=== PATIENT | female | born 1935 | race Caucasian/White ===

== ENCOUNTER 2019-12-05 13:32 | Outpatient (CLI) | payer MEDICARE, SELFPAY ==
--- NOTE | 2019-12-05 13:45 | CTR_ITS ---
PROCEDURE INFORMATION: Exam: CT Angiography Chest With Contrast Exam date and time: 12/05/2019 1:52 PM Age: 84 years old Clinical indication: Condition or disease; Other: F/u thoracic aneurysm; Prior surgery; Surgery type: Pacemaker; Additional info: Thoracic aortic aneurysm TECHNIQUE: Imaging protocol: Computed tomographic angiography of the chest with intravenous contrast. 3D rendering: MIP and/or 3D reconstructed images were created by the technologist. Total DLP: 675.19 mGy-cm Radiation optimization: All CT scans at this facility use at least one of these dose optimization techniques: automated exposure control; mA and/or kV adjustment per patient size (includes targeted exams where dose is matched to clinical indication); or iterative reconstruction. Contrast material: OMNI 350; Contrast volume: 95 ml; Contrast route: IV; COMPARISON: CT chest wo con [id number] 03/17/2016 2:04 PM FINDINGS: Pulmonary arteries: Normal. No pulmonary emboli. Aorta: Aneurysmal dilatation of the ascending aorta measuring 5.2 cm. No dissection. Other veins: The left brachiocephalic vein appears narrowed or possibly occluded with paraspinous collaterals. Lungs: 4 mm nodule in the right upper lobe, image 20. Pleural space: Unremarkable. No pneumothorax. No pleural effusion. Heart: Unremarkable. No cardiomegaly. No pericardial effusion. Gallbladder and bile ducts: Cholecystectomy. Lymph nodes: Unremarkable. No enlarged lymph nodes. Bones/joints: Unremarkable. No acute fracture. Soft tissues: Unremarkable. Other findings: Left pacemaker. CT/CT angio chest [id number] IMPRESSION: 1. Slightly progressed aneurysmal dilatation of the ascending thoracic aorta measuring 5.2 cm, previously 4.6 cm. 2. 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 3. 4 mm right lung nodule. For patients at low risk (minimal or absent history of smoking and of other known risk factors), no routine follow-up is indicated. For patients at high risk (history of smoking or of other known risk factors), consider optional CT at 12 months. (lorelei Yu al., Fleischner Society, 2017). Radiation Dose CTDIVOL = (mGy): DLP = 675.19 (mGy-cm)
--- NOTE | 2019-12-05 13:45 | USCV_ITS ---
Regina Johnson Age: 84 Gender: F : 1935 Exam Date: 12/05/2019 14:57 Ordering Phys: Chavez Garland MD Technologist: Jeanie Lau Exam Location: [facility] [place] Indication: MODERATE AORTIC REGURGITATION BP: / HR: 85 Rhythm: Other Technical Quality: Adequate MEASUREMENTS (Male / Female) Normal Values 2D ECHO LV Diastolic Diameter PLAX 3.8 cm 4.2 - 5.9 / 3.9 - 5.3 cm LV Systolic Diameter PLAX 2.0 cm IVS Diastolic Thickness 1.2 cm 0.6 - 1.0 / 0.6 - 0.9 cm IVS Systolic Thickness 1.5 cm LVPW Diastolic Thickness 0.9 cm 0.6 - 1.0 / 0.6 - 0.9 cm LVPW Systolic Thickness 1.5 cm LVOT Diameter 2.0 cm LV Ejection Fraction 2D Teich 79.1 % LV Ejection Fraction MOD 2C 65.9 % LV Ejection Fraction 2C AL 66.4 % LA Diameter 2.4 cm LA Width 2.6 cm LA Height 4.2 cm RA Width 3.5 cm RA Height 4.4 cm M-MODE LV Diastolic Diameter MM 4.4 cm 4.2 - 5.9 / 3.9 - 5.3 cm LV Systolic Diameter MM 2.7 cm LV Ejection Fraction MM Teich 70.7 % IVS Diastolic Thickness MM 1.0 cm 0.6 - 1.0 / 0.6 - 0.9 cm IVS Systolic Thickness MM 1.2 cm LVPW Diastolic Thickness MM 0.7 cm 0.6 - 1.0 / 0.6 - 0.9 cm LVPW Systolic Thickness MM 1.3 cm Aortic Annulus Diameter 2.4 cm LA Ao Ratio MM 1.0 MV E Point Septal Separation 0.4 cm DOPPLER AV Peak Velocity 183.0 cm/s LVOT Peak Velocity 149.0 cm/s AV Area Cont Eq vti 2.8 cm squared AV Area Cont Eq pk 2.6 cm squared MV Peak Velocity 103.0 cm/s MV Area PHT 3.1 cm squared Mitral E to A Ratio 0.6 MV E' Velocity 5.0 cm/s Mitral E to MV E' Ratio 13.1 Mitral E to LV E' Lateral Ratio 14.8 Mitral E to LV E' Septal Ratio 11.9 TR Peak Velocity 221.0 cm/s TR Peak Gradient 19.5 mmHg Right Atrial Pressure 3.0 mmHg Pulmonary Artery Systolic Pressu 22.5 mmHg PV Peak Velocity 117.0 cm/s RV Acceleration Time 0.1 s FINDINGS Left Ventricle Normal left ventricular size, systolic function and wall thickness, with no regional wall motion abnormalities. Grade I/IV diastolic dysfunction (abnormal relaxation filling pattern), normal to mildly elevated filling pressures. Left ventricular ejection fraction is estimated at 60%. Abnormal septal motion consistent with pacemaker. Right Ventricle Normal right ventricular size and systolic function. Normal right ventricular systolic pressure. Catheter/pacemaker wire visualized in the right ventricle. Right Atrium The right atrium is normal in size. Left Atrium The left atrium is normal in size. Mitral Valve Structurally normal mitral valve. Mild mitral annular calcification. Mild mitral valve regurgitation. Aortic Valve Structurally normal trileaflet aortic valve. Mild aortic valve calcification. Aortic valve sclerosis without stenosis. Moderate aortic valve regurgitation. Tricuspid Valve Structurally normal tricuspid valve. Trace tricuspid valve regurgitation. Pulmonic Valve Pulmonic valve not well visualized. Pericardium Normal pericardium without effusion. Aorta Normal ascending aorta dimension. CONCLUSIONS Normal left ventricular size, systolic function and wall thickness, with no regional wall motion abnormalities. Grade I/IV diastolic dysfunction (abnormal relaxation filling pattern), normal to mildly elevated filling pressures. Left ventricular ejection fraction is estimated at 60%. Structurally normal mitral valve. Mild mitral annular calcification. Mild mitral valve regurgitation. Structurally normal trileaflet aortic valve. Mild aortic valve calcification. Aortic valve sclerosis without stenosis. Moderate aortic valve regurgitation. No change from previous study of May 04, 2018 Dr. Satya Ramires MD (Electronically Signed) Final Date: 06 December 2019 15:55 S
[2019-12-05 15:54] LABS: Blood Urea Nitrogen 18 mg/dL (8-23)
[2019-12-05] MEDS: iohexol 350 mg/mL 100 mL Btl IV (16:38)
== END 2019-12-05 13:33 | disposition home or self-care (01) ==
PROVIDERS: Family Provider Family Medicine; PCP Family Medicine; Visit Provider Family Medicine
DX: I71.2 Thoracic aortic aneurysm, without rupture (principal); I35.1 Nonrheumatic aortic (valve) insufficiency; I08.3 Combined rheumatic disorders of mitral, aortic and tricuspid valves; I82.290 Acute embolism and thrombosis of other thoracic veins; R91.1 Solitary pulmonary nodule; Z95.0 Presence of cardiac pacemaker
CPT/HCPCS: 36415; 71275; 82565; 84520; 93306

== ENCOUNTER → 2020-03-16 14:50 | Outpatient (BNVA) | payer MEDICARE, SELFPAY | PROVIDERS: Family Provider Family Medicine; PCP Family Medicine; Visit Provider Nurse Practitioner Family | DX: R30.0 Dysuria (principal); N30.00 Acute cystitis without hematuria | CPT/HCPCS: 80053; 81000 ==

== ENCOUNTER 2020-03-31 15:28 | Outpatient (CLI) | payer MEDICARE, SELFPAY ==
--- NOTE | 2020-03-31 15:30 | FLR_ITS ---
PROCEDURE INFORMATION: Exam: XR Abdomen, 1 View Exam date and time: 03/31/2020 3:33 PM Age: 85 years old Clinical indication: Condition or disease; Other: Stent; Prior surgery TECHNIQUE: Imaging protocol: XR of the abdomen. Views: Frontal supine view of the abdomen. 1 View. COMPARISON: No relevant prior studies available. FINDINGS: Gastrointestinal tract: Normal. No bowel dilation. Status post cholecystectomy Bones/joints: Metallic left hip arthroplasty in good position otherwise unremarkable. Soft tissues: There is a double-J ureteral stent on the right side in good position. XR/XR KUB [id number] IMPRESSION: 1. No acute GI abnormality. 2. Double-J ureteral stent right side. 3. Metallic arthroplasty left hip 4. Status post cholecystectomy
== END 2020-03-31 15:29 | disposition home or self-care (01) ==
LOC: RAD 15:32
PROVIDERS: PCP Family Medicine; Visit Provider Urology
DX: Z96.0 Presence of urogenital implants (principal); Z96.642 Presence of left artificial hip joint; Z90.49 Acquired absence of other specified parts of digestive tract
CPT/HCPCS: 74018; 81001

== ENCOUNTER 2020-04-06 12:34 | Day surgery (SDC) | payer MEDICARE, SELFPAY ==
--- NOTE | 2020-04-03 09:57 | ECG_ITS ---
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 Measurements Intervals [place] Rate: 60 P: 111 DE: 178 QRS: -69 QRSD: 186 T: 112 QT: 455 QTc: 456 Interpretive Statements ELECTRONIC ATRIAL PACEMAKER ELECTRONIC VENTRICULAR PACEMAKER ABNORMAL RHYTHM ECG Compared to ECG 04/05/2019 09:58:18 No significant changes Electronically Signed On 04-03-2020 21:52:26 CDT by Omer Kim M.D. [id number]"
[2020-04-03 09:59] VITALS: BMI 25.2
--- NOTE | 2020-04-03 10:15 | ANES.PREANE2 ---
Pre-Anesthetic Assessment Pre-Anesthetic Assessment: Height/Weight: Height 1.57 m Weight 62.596 kg Preop Diagnosis: Chronic right ureteral stent Proposed Procedure: Operation Date: 04/06/20 13:55 Proposed Procedures p Cystoscopy 67048 84386 Z96.0(Not Applicable) - Chevy Alcocer MD s Ureteral Stent Exchange(Right) - Chevy Alcocer MD s ESWL/possible(Not Applicable) - Chevy Alcocer MD Familial anesthetic complications: none Social: Social History: No alcohol and No tobacco Exam: Pre-Anes Outpt Exam: alert, oriented x 3, clear to auscultation bilaterally and regular rate & rhythm Airway: Cervical ROM: WNL MP: 3 Dentition: False Pulmonary: Pulmonary: None reported CV/HEM: CV/HEM: HTN Comments: 5.2 cm Thoracic ascending aortic aneursym 12/06 echo normal LV, moderate AI, no significant stenosis Pacemaker - type II mobtiz AV block LBBB Metabolic: Metabolic: Hyperlipidemia Musc/skel: Musc/skel: Lower Back Pain Anesthetic Plan: ASA status: 3 Anesthesia: General Risk of > 500 ml blood loss (7ml/kg in children): No PFSH Anesthesia PFSH: Medical History Aortic insufficiency Aortic valve sclerosis Ascending aortic aneurysm HTN (hypertension) Hyperlipidemia Left bundle branch block Second degree AV block, Mobitz type II Ureteral stent retained Surgical History S/P cholecystectomy S/P hip replacement Status cardiac pacemaker Status post tubal ligation Family History Daughter Cancer BREAST Son Cancer KIDNEY Social History Smoking and tobacco status: never smoked Alcohol intake: never Current occupational status: retired Data Anesthesia Cardiac Studies: No Data to Display
[2020-04-06 12:56] VITALS: BP 184/106; PULSE 81; RESP 16; TEMP 36.5; O2SAT 96
[2020-04-06] MEDS: sodium chloride 0.9% 1,000 ML 30 ML IV (13:13)
--- NOTE | 2020-04-06 13:33 | P.ANESUD_ITS ---
Pre-Anesthetic Update Pre-Anesthetic Assessment: Date of Surgery/Procedure: 04/06/20 Preop Alba gnosis: Chronic right ureteral stent Proposed Procedure: Operation Date: 04/06/20 13:15 Proposed Procedures p Cystoscopy 51698 21140 Z96.0(Not Applicable) - Chevy Alcocer MD s Ureteral Stent Exchange(Right) - Chevy Alcocer MD s ESWL/possible(Not Applicable) - Chevy Alcocer MD Operation Date: 04/06/20 13:15 Proposed Procedures p Cystoscopy 89446 85109 Z96.0(Not Applicable) - Chevy Alcocer MD s Ureteral Stent Exchange(Right) - Chevy Alcocer MD s ESWL/ possible(Not Applicable) - Chevy Alcocer MD Any changes to Pre-Anesthetic Assessment?: No Last Intake: Intake Last Liquid Date 04/06/20 Last Liquid Time 07:00 Last Solid Date 04/04/20 Last Solid Time 17:00 Vitals: Temperature 97.7 F 04/06/20 12:56 Temperature Source Temporal Artery S can 04/06/20 12:56 Pulse Rate 81 04/06/20 12:56 Respiratory Rate 16 04/06/20 12:56 Blood Pressure 184/106 04/06/20 12:56 Blood Pressure Stephenie n 132 04/06/20 12:56 Pulse Oximetry 96 04/06/20 12:56 Oxygen Delivery Me thod 04/06/20 12:56 Exam: Pre-Anes Outpt Exam: alert, oriented x 3, clear to auscultation bilaterally and regular rate & rhythm Other Pertinent Information: Other Pertinent Information: took carvedilol Cardiac Studies: No Data to Display
--- NOTE | 2020-04-06 14:10 | PM.OP ---
Operative Report Date of procedure: April 06, 2020 Pre-op Diagnosis: Chronic right ureteral stent Post-op diagnosis: same Procedure Done: 1. Cystoscopy with removal of right ureteral stent Implants: None Pathology: none sent Surgeon: Leodan Anesthesia: MAC Estimated blood loss: Minimal Urine output: Not measured Complications: None Findings: Minimal encrustation on the distal end of the stent with no encrustation of any consequence on the proximal end. Stent easily uncurled and withdrew without any significant tension. Condition: stable Brief History: Mrs. Johnson is a very pleasant 85-year-old white female with a history of chronic right ureteral/renal dilation of unclear etiology dating back many years with more recent development of chronic abdominal pain. She underwent stent placement last year with my expectation that she would not likely see any significant benefit from a pain perspective due to the chronic nature and longstanding dilation. Surprisingly she did improve. Since then she is also had a right abdominal wall hernia repair by Dr. Figueroa and has done well from that perspective with a significant improvement in her baseline abdominal pain. We had discussed the possibility of changing the stent on a routine basis versus removing it at some point to see if it really is necessary and ultimately she and her family after detailed discussion elected to have the stent removed and she is admitted now to outpatient surgery for that procedure. Procedure: After routine preoperative evaluation examination and obtaining of informed consent she was taken to the operating suite on 04/06/2020 where general anesthesia was administered without difficulty after appropriate timeout was performed, SCDs confirmed to be functioning, preoperative antibiotics administered, and beta-sherry protocol was confirmed. Prepped and draped in usual sterile fashion in dorsolithotomy position pain careful attention to avoiding pressure points. 21 Vietnamese cystoscope with 30 degree lens was introduced into urethral meatus and advanced into the bladder under videoscopy. A flexible guidewire was passed up the right ureter next to the stent in the appropriate position. The distal aspect of the stent was grasped with grasping forceps and withdrawn through the urethral meatus then with light pressure of the stent under fluoroscopic monitoring was withdrawn with easy uncurling of the proximal aspect. There was no tension at all. Reinspection showed good drainage without bleeding from the ureteral orifice. The safety wire was removed and the procedure completed after draining her bladder. She tolerated the procedure well without complications and was awakened in the operating room and returned to the recovery room in stable condition. PLANS: 1. Discharge from outpatient surgery 2. I reviewed with her family the possibility of increased pain like we had discussed preoperatively. I encouraged him to call if they felt that was becoming an issue. 3. Follow-up in 3 months or sooner for increasing symptoms
--- NOTE | 2020-04-06 14:15 | P.HPUD_ITS ---
Surgery/Procedure H&P Update DATE OF PROCEDURE: April 06, 2020 DATE H&P PERFORMED: 03/31/20 H&P UPDATE INFORMATION: I have reviewed H&P completed within last 30 days, No changes to prior documentation and H&P is in [facility] EMR on date indicated PREOP DIAGNOSIS: Chronic right ureteral stent PLANNED PROCEDURE: Operation Date: 04/06/20 13:15 Proposed Procedures p Cystoscopy 50815 30516 Z96.0(Not Applicable) - Chevy Alcocer MD s Ureteral Stent Exchange(Right) - Chevy Alcocer MD s ESWL/possible(Not Applicable) - Chevy Alcocer MD Operation Date: 04/06/20 13:15 Proposed Procedures p Cystoscopy 56902 69725 Z96.0(Not Applicable) - Chevy Alcocer MD s Ureteral Stent Exchange(Right) - Chevy Alcocer MD s ESWL/ possible(Not Applicable) - Chevy Alcocer MD
[2020-04-06 14:24] VITALS: BP 131/71; PULSE 69; RESP 16; TEMP 36.3; O2SAT 95
[2020-04-06 14:55] VITALS: BP 160/77; PULSE 60; RESP 18; O2SAT 96
== END 2020-04-06 15:00 | disposition home or self-care (01) ==
PROVIDERS: PCP Family Medicine; Visit Provider Urology
PROC: 0TJB8ZZ Inspection of Bladder, Via Natural or Artificial Opening Endoscopic (ICD-10-PCS; CPT 52000; principal; 2020-04-06 13:15)
PROC: (CPT 52310; 2020-04-06 13:15)
DX: Z96.0 Presence of urogenital implants (principal); I10 Essential (primary) hypertension; E78.5 Hyperlipidemia, unspecified
CPT/HCPCS: 52310; 12345; 93005; J0690; J2001; J2704; J3010; J7030

== ENCOUNTER → 2020-07-08 13:13 | Outpatient (BNVA) | payer MEDICARE, SELFPAY | PROVIDERS: PCP Family Medicine; Visit Provider Urology | DX: N30.00 Acute cystitis without hematuria (principal); Z96.0 Presence of urogenital implants | CPT/HCPCS: 81001 ==

== ENCOUNTER 2020-12-25 07:52 | Outpatient (CLI) | payer MEDICARE, SELFPAY ==
--- NOTE | 2020-12-25 08:23 | CT_ITS ---
WS: [id number] CT of the lumbar spine, additional two-dimensional coronal and sagittal imaging was obtained. 12/26/19 21 Clinical Data: BACK PAIN Comparison: CT abdomen and pelvis, 08/20/2019, MRI of the lumbar spine, 04/20/2009. DLP: 1721.[address] scans at [facility] use at least one of these dose optimization techniques: automat ed exposure control; mA and/or kV adjustment per patient size (includes targeted exams where dose is matched to clinical indication); or iterative reconstruction. Findings: There are compression fractures of the superior aspect of L1 and also of L5 which were not seen on the most recent CT abdomen and pelvis. The posterior superior aspect of L1 has a retropulsion of 0.5 cm. There is central vertebral body height of L2 and L3 which has not changed since 08/10/2019 . Degenerative disc disease is present. T12-L1, L4-L5 and L5-S1. There is subluxation of L2 on L3, L3 on L4 and L4 on L5 of 0.3 cm. Diffuse osteoporosis is present. The transverse processes and SI joint s are normal. There is a left renal cyst. There are clips in the right upper quadrant from a cholecys tectomy. T12-L1: There is central canal stenosis from the retropulsed fragment of L1 but no foraminal stenosis . L1-L2: There is mild canal stenosis from the slight retropulsion of the L2 vertebral body. L2-L3: There is canal stenosis from the retropulsion of the L3 vertebral body along with facet joint arthritis causing canal and foraminal stenosis. L3-L4: There is canal stenosis from retropulsion of the L4 vertebral body along with facet joint arth ritis causing canal and foraminal stenosis L4-L5: There is canal stenosis from retropulsion of the L5 vertebral body along with facet joint arth ritis causing canal and foraminal stenosis. L5-S1: There is a broad-based disc bulge and facet joint arthritis causing canal and foraminal stenos is. CT/CT lumbar spine wo con* [id number] Impression: 1. Recent compression fractures of the L1 and L5 vertebral bodies with loss of less than 25% of vertebral body height. 2. Old compression fractures of L2 and L3 with loss of less than 25% of central vertebral body height. 3. Degenerative disc disease at multiple levels. 4. Diffuse osteoporosis 5. Multilevel minimal subluxation. 6. Multilevel disc bulging, retropulsion, and facet joint arthritis causing can al and foraminal stenosis.
== END 2020-12-25 07:53 | disposition home or self-care (01) ==
LOC: RADWPI 08:01
PROVIDERS: PCP Family Medicine; Visit Provider Family Medicine
DX: M51.26 Other intervertebral disc displacement, lumbar region (principal); M13.88 Other specified arthritis, other site; M48.061 Spinal stenosis, lumbar region without neurogenic claudication; M81.0 Age-related osteoporosis without current pathological fracture; M51.36 Other intervertebral disc degeneration, lumbar region; S32.020A Wedge compression fracture of second lumbar vertebra, initial encounter for closed fracture; S32.030A Wedge compression fracture of third lumbar vertebra, initial encounter for closed fracture; X58.XXXA Exposure to other specified factors, initial encounter
CPT/HCPCS: 72131

== ENCOUNTER → 2021-01-12 15:06 | Outpatient (BNVA) | payer MEDICARE, SELFPAY | PROVIDERS: PCP Family Medicine; Referring Provider Family Medicine; Visit Provider Orthopaedic Surgery | DX: M48.56XA Collapsed vertebra, not elsewhere classified, lumbar region, initial encounter for fracture (principal); M54.9 Dorsalgia, unspecified | CPT/HCPCS: 72110 ==

== ENCOUNTER 2021-02-03 08:33 | Outpatient (CLI) | payer MEDICARE, SELFPAY ==
--- NOTE | 2021-02-03 09:00 | IR_ITS ---
WS: [id number] MYELOGRAM LUMBAR SPINE Fluoroscopic guided lumbar myelogram CLINICAL INFORMATION: M54.9 - Dorsalgia, unspecified COMPARISON: None. TECHNIQUE: The procedure, including risks, benefits, and complications, were discussed with the patie nt who agreed to proceed. A timeout was performed to confirm correct patient, procedure, and site. Using sterile technique, the patient was prepped and draped in the usual sterile fashion. After admin istration of local anesthesia using 1% preservative-free lidocaine and using fluoroscopic guidance, a 22-gauge spinal needle was advanced into the subarachnoid space at the L5-S1 level. Subsequently 13 cc of Omnipaque 240 was administered into the thecal sac. The needle was removed and hemostasis was a chieved. Spot fluoroscopic images were obtained. FLUOROSCOPIC TIME: 0.5 minutes. Spot fluoroscopic images demonstrate mild lumbar curve convex right. Osteopenia. Single lead cardiac pacer. Cholecystectomy clips. Left MARK. Aortic calcification. Mild compression of the L1 and L5 super ior endplates as seen on the recent CT. Chronic compression of the L2 and L3 superior endplates. Mult ilevel central canal stenosis. Slight anterolisthesis L4 on L5 in the neutral position measuring 5 mm . This increases in flexion to 8.6 mm and decreases slightly on extension. Please see CT myelogram report for additional detail. IR/[place] myel[place] lumbar [id number] IMPRESSION: 1. Uncomplicated lumbar myelogram. 2. Multilevel moderate central canal stenosis. See CT report for better anatom ic detail 3. Mild flexion instability L4-5 described above.
[2021-02-03] MEDS: iohexol 240 mg/mL 50 mL Btl INTRATHECA (09:53)
--- NOTE | 2021-02-03 11:30 | CT_ITS ---
WS: [id number] CT LUMBAR SPINE TECHNIQUE: Contrast-enhanced CT of the lumbar spine with coronal and sagittal reformatted images. CLINICAL INFORMATION: M54.9 - Dorsalgia, unspecified COMPARISON: CT December 25, 2020 DLP: 1820.[address] scans at [facility] use at least one of these dose optimization techniques: automat ed exposure control; mA and/or kV adjustment per patient size (includes targeted exams where dose is matched to clinical indication); or iterative reconstruction. FINDINGS: Mild lumbar curve. Mild recent compression fractures superior endplates at L1 and L5 with moderate re tropulsion of the posterior superior cortex unchanged from the recent examination. Chronic compressio n of the L2 and L3 superior endplates. T12-L1: Vacuum disc phenomenon. Mild central canal stenosis. Tiny central protrusion. Mild bilateral foraminal narrowing. Mild facet arthropathy. L1-L2: Mild disc bulging with osteophytic ridging. Mild narrowing subarticular recess bilaterally. Mo derate facet arthropathy. Mild bilateral foraminal narrowing. L2-L3: Mild disc bulging and osteophytic ridging. Moderate central canal stenosis with impingement wells barticular recess bilaterally. Moderate facet arthropathy. Mild bilateral foraminal narrowing. L3-L4: Slight anterolisthesis L3 on L4. Moderate central canal stenosis due to disc bulging with face t arthropathy and ligamentum flavum hypertrophy. Impingement on the traversing right L4 nerve root. M ild bilateral foraminal narrowing. L4-L5: Mild disc bulging with vacuum disc phenomenon. Moderate central canal stenosis. Impingement tr aversing L5 nerve roots. Moderate left foraminal narrowing. Moderate facet arthropathy. L5-S1: Mild disc bulging with osteophytic ridging. Moderate to advanced facet arthropathy. Slight imp ingement traversing S1 nerve roots. Mild to moderate central canal stenosis. Moderate left greater th an right foraminal narrowing. Adrenal glands are normal. Partially visualized left renal cyst. Normal caliber abdominal aorta with aortic calcification. Calcified uterine fibroid. Osteopenia. Visualized pelvic bony structures: Normal. Paravertebral soft tissues: Normal. CT/CT lumbar spine w con [id number] IMPRESSION: 1. Recent compression of the L1 and L5 superior endplates is unchanged. 2. Moderate central canal stenosis L2-L3 L3-L4 and L4- L5 worse L4-5 with impi ngement on the subarticular recess bilaterally. 3. Multilevel bony foraminal narrowing [id number] worse at left L4-5 and bilateral L5-S1 worse in the left.
== END 2021-02-03 08:34 | disposition home or self-care (01) ==
PROVIDERS: PCP Family Medicine; Visit Provider Orthopaedic Surgery
DX: S32.010A Wedge compression fracture of first lumbar vertebra, initial encounter for closed fracture (principal); S32.050A Wedge compression fracture of fifth lumbar vertebra, initial encounter for closed fracture; M48.061 Spinal stenosis, lumbar region without neurogenic claudication; X58.XXXA Exposure to other specified factors, initial encounter
CPT/HCPCS: 62304; 72120; 72132; Q9966

== ENCOUNTER → 2021-02-25 09:58 | Outpatient (BNVA) | payer MEDICARE, SELFPAY | PROVIDERS: PCP Family Medicine; Visit Provider Orthopaedic Surgery | DX: Z01.818 Encounter for other preprocedural examination (principal); Z20.822 Contact with and (suspected) exposure to COVID-19 | CPT/HCPCS: 87635 ==

== ENCOUNTER 2021-03-01 07:35 | Day surgery (SDC) | payer MEDICARE, SELFPAY ==
[2021-02-26 11:12] VITALS: BMI 27.3
--- NOTE | 2021-02-26 11:39 | ECG_ITS ---
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
--- NOTE | 2021-02-26 12:52 | ANES.PREANE2 ---
Pre-Anesthetic Assessment Pre-Anesthetic Assessment: Height/Weight: Height 1.52 m Weight 63.503 kg Preop Diagnosis: Chronic right ureteral stent Proposed Procedure: Operation Date: 03/01/21 14:50 Proposed Procedures p Lumbar Spine Decompression L1 L5 07531 34403 S32.000(Not Applicable) - Oscar Watkins, DO Was Beta Peyton taken within 24 hours: Yes Was Clonidine taken within 24 hours: N/A Social: Social History: No alcohol and No tobacco Exam: Pre-Anes Outpt Exam: alert, oriented x 3, clear to auscultation bilaterally and regular rate & rhythm Airway: Submandibular: WNL Cervical ROM: WNL MP: 2 Dentition: False CV/HEM: CV/HEM: Arrythmia, CAD and HTN Comments: Normal EF 60%, AV sclerosis without stenosis, mild to mod AI, ascending aneurysm 5.2cm Pacemaker Metabolic: Metabolic: Hyperlipidemia Anesthetic Plan: ASA status: 3 Anesthesia: General Risk of > 500 ml blood loss (7ml/kg in children): No PFSH Anesthesia PFSH: Medical History Aortic insufficiency Aortic valve sclerosis Ascending aortic aneurysm HTN (hypertension) Hyperlipidemia Left bundle branch block Second degree AV block, Mobitz type II Ureteral stent retained Surgical History S/P cholecystectomy S/P hip replacement Status cardiac pacemaker Status post tubal ligation Family History Daughter Cancer BREAST Son Cancer KIDNEY Father , in his 80's No problems noted. Mother , in her 80's No problems noted. Social History Smoking and tobacco status: never smoked Alcohol intake: never Marital status: / Current occupational status: retired History of recent travel: No Data Anesthesia Cardiac Studies: No Data to Display
[2021-03-01] VITALS (8 sets, daily range): BP systolic 124–184; BP diastolic 79–122; PULSE 60–92; RESP 17–18; TEMP 36.2–36.5; O2SAT 94–100
--- NOTE | 2021-03-01 | SCC_ITS ---
Procedure Done: L1 kyphoplasty L5 Kyphoplasty 45.3 seconds of fluoroscopic guidance, for a cumulative dose of 38.62 mGy and 24.9 mGy was provided to Dr[address] Watkins by the radiology department. C-arm images of the lumbar spine were saved for the patient's permanent record. [facility]
--- NOTE | 2021-03-01 | SC_ITS ---
WS: [id number] Exam: C-arm FL for Kyphoplasty Date/Time of Exam: 03/01/2021 7:42 AM Reason For Exam: surgery Limited AP intraoperative C-arm images of the lumbar spine are submitted for evaluation. There are si gns of kyphoplasty involving L1 and L5 compression fractures.
--- NOTE | 2021-03-01 07:42 | SC_ITS ---
WS: [id number] Exam: C-arm FL for Kyphoplasty Date/Time of Exam: 03/01/2021 7:42 AM Reason For Exam: surgery Limited AP intraoperative C-arm images of the lumbar spine are submitted for evaluation. There are si gns of kyphoplasty involving L1 and L5 compression fractures.
--- NOTE | 2021-03-01 07:58 | W.PM.OPSUD ---
Surgery/Procedure H&P Update DATE OF PROCEDURE: March 01, 2021 DATE H&P PERFORMED: 02/25/21 H&P UPDATE INFORMATION: I have reviewed H&P completed within last 30 days, I have examined patient prior to procedure and No changes to prior documentation PREOP DIAGNOSIS: L1 and L5 compression fracture PLANNED PROCEDURE: Operation Date: 03/01/21 10:30 Proposed Procedures p Lumbar Spine Decompression L1 L5 91903 17181 S32.000(Not Applicable) - Oscar Watkins DO
[2021-03-01] MEDS: sodium chloride 0.9% 1,000 ML 30 ML IV (07:59)
[2021-03-01] MEDS: enoxaparin 40 mg/0.4 mL Syringe SUBCUT (08:01)
--- NOTE | 2021-03-01 08:08 | W.PM.OPSUD ---
Surgery/Procedure H&P Update DATE OF PROCEDURE: March 01, 2021 DATE H&P PERFORMED: 02/25/21 PREOP DIAGNOSIS: L1 and L5 compression fracture PLANNED PROCEDURE: L1 and L5 Kyphoplasty Operation Date: 03/01/21 10:30
--- NOTE | 2021-03-01 08:10 | P.ANESUD_ITS ---
Pre-Anesthetic Update Pre-Anesthetic Assessment: Date of Surgery/Procedure: 03/01/21 Preop Alba gnosis: L1 and L5 compression fracture Proposed Procedure: Operation Date: 03/01/21 10:30 Proposed Procedures p Lumbar Spine Decompression L1 L5 20156 49977 S32.000(Not Applicable) - Oscar Watkins, DO Any changes to Pre-Anesthetic Assessment?: No Last Intake: Intake Last Liquid Date 02/28/21 Last Liquid Time 06:00 Last Solid Date 02/28/21 Last Solid Time 16:00 Vitals: Temperature 97.4 F L 03/01/21 07:49 Temperature Source Oral 03/01/21 07:49 Pulse Rate 92 03/01/21 07:49 Pulse Rhythm 03/01/21 07:49 Pulse Strength 3+ Normal 03/01/21 07:49 Respiratory Rate 18 03/01/21 07:49 Blood Pressure 184/122 03/01/21 07:49 Blood Pressure Stephenie n 142 03/01/21 07:49 Pulse Oximetry 95 03/01/21 07:49 Oxygen Delivery Me thod 03/01/21 07:49 Exam: Pre-Anes Outpt Exam: alert, oriented x 3, clear to auscultation bilaterally and regular rate & rhythm Cardiac Studies: No Data to Display
--- NOTE | 2021-03-01 09:29 | P.PCN_ITS ---
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
--- NOTE | 2021-03-01 09:29 | PM.PACU ---
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
--- NOTE | 2021-03-01 09:33 | SUR.PHASEI ---
PT AWAKES TO VOICE, DENIES PAIN , PT CONTINUES TO SLEEP IF NOT DISTURBED PT ON RA TRIAL PER PT REQUEST , PT TAKING OCC ICE CHIPS VSS.
--- NOTE | 2021-03-01 09:34 | PM.OP ---
Operative Report Date of procedure: March 01, 2021 Pre-op Diagnosis: L1 and L5 compression fracture Post-op diagnosis: same Procedure Done: L1 kyphoplasty L5 Kyphoplasty Surgeon: Oscar Watkins Anesthesia: General Estimated blood loss (mL): 5 Condition: stable Disposition: PACU Procedure: 1. L1 Kyphoplasty 2. L5 Kyphoplasty Patient is brought to the operative suite after undergoing areas impingement were well-padded. Stab incision was made over the L5 pedicle using AP lateral fluoroscopy. Opening awl was inserted. Drill was then used. Balloon was then inserted. Inflated. Balloon was deflated. Cement was injected. Spine had good fill throughout the entire vertebral body. Attention was then brought to the L1 level. Stab incision made over the L1 pedicle. Opening trocar was used. Drill was then inserted. Balloon was then inserted. Balloon was deflated. Cement was injected had good fill throughout the vertebral body as well. Wounds were then irrigated closed with a nylon stitch. And patient had sterile dressings applied and transferred to the PACU in stable condition.
[2021-03-01] MEDS: HYDROcodone-acetaminophen 5-325 mg Tablet 1 TAB PO (10:16)
--- NOTE | 2021-03-01 17:45 | ANE.PACU2 ---
Inpatient post-anesthesia follow up: Airway intact: Yes Vital signs: Temperature 97.2 F Pulse Rate 60 Respiratory Rate 18 Blood Pressure 160/79 Pulse Oximetry 94 Oxygen Delivery Me thod Room Air Oxygen Flow Rate 6 Fraction of Inspir ed Oxygen Hydration adequate: Yes Nausea and vomiting: No Pain level: 3 Mental status: Baseline
== END 2021-03-01 11:15 | disposition home or self-care (01) ==
PROVIDERS: PCP Family Medicine; Visit Provider Orthopaedic Surgery
PROC: (CPT 22514; principal; 2021-03-01 10:10)
DX: M48.56XA Collapsed vertebra, not elsewhere classified, lumbar region, initial encounter for fracture (principal); I25.10 Atherosclerotic heart disease of native coronary artery without angina pectoris; I10 Essential (primary) hypertension; Z95.0 Presence of cardiac pacemaker; E78.5 Hyperlipidemia, unspecified
CPT/HCPCS: 22514; 22515; 72100; 76000; 93005; 96372; J0330; J0690; J1650; J2370; J2405; J2704; J3010; J3490; J7030

== ENCOUNTER 2021-11-01 14:50 | Outpatient (CLI) | payer MEDICARE, SELFPAY ==
--- NOTE | 2021-11-01 15:03 | XR_ITS ---
WS: [id number] Left hip, 2 views, AP pelvis, 11/01/2021 Clinical Data: LEFT HIP PAIN Comparison: Left hip, 08/17/2010. Findings: A left hip arthroplasty is in good position with no loosening. The right hip shows minimal narrowing. No fractures or dislocations about the left hip are seen. The SI joints and pubic symphysis are unre markable. There are no pelvic fractures. There is kyphoplasty cement in the L5 vertebral body. XR/XR hip LT 2-3V wo/w pel* [id number] Impression: Left hip arthroplasty. Tonnis classification:
== END 2021-11-01 14:51 | disposition home or self-care (01) ==
PROVIDERS: PCP Family Medicine; Visit Provider Family Medicine
DX: M25.552 Pain in left hip (principal); Z96.642 Presence of left artificial hip joint
CPT/HCPCS: 73502

== ENCOUNTER → 2021-12-10 09:37 | Outpatient (BNVA) | payer MEDICARE, SELFPAY | PROVIDERS: PCP Family Medicine; Visit Provider Internal Medicine Cardiovascular Disease | DX: I35.1 Nonrheumatic aortic (valve) insufficiency (principal); I71.2 Thoracic aortic aneurysm, without rupture; I10 Essential (primary) hypertension; I44.7 Left bundle-branch block, unspecified; Z95.0 Presence of cardiac pacemaker; E78.5 Hyperlipidemia, unspecified | CPT/HCPCS: 99214 ==

== ENCOUNTER 2022-01-17 13:45 | Outpatient (CLI) | payer MEDICARE, SELFPAY ==
--- NOTE | 2022-01-17 14:00 | USCV_ITS ---
Regina Johnson Age: 87 Gender: F : 1935 Exam Date: 01/17/2022 14:08 Ordering Phys: Shira Ryan MD ([email or web address]) Technologist: Asia Hare [place] [facility] [place]: Aortic regurgitation BP: / HR: 69 Rhythm: Sinus Technical Quality: Adequate MEASUREMENTS (Male / Female) Normal Values 2D ECHO LV Diastolic Diameter PLAX 3.3 cm 4.2 - 5.9 / 3.9 - 5.3 cm LV Systolic Diameter PLAX 2.6 cm LV Chamber Size 3.4 cm IVS Diastolic Thickness 1.1 cm 0.6 - 1.0 / 0.6 - 0.9 cm IVS Systolic Thickness 1.0 cm LVPW Diastolic Thickness 1.3 cm 0.6 - 1.0 / 0.6 - 0.9 cm LVPW Systolic Thickness 1.8 cm RV Chamber Size 2.4 cm LVOT Diameter 2.0 cm LV Ejection Fraction 2D Teich 43.1 % LV Ejection Fraction MOD 2C 75.8 % LV Ejection Fraction 2C AL 74.8 % LA Diameter 2.4 cm LA Width 3.6 cm LA Height 3.4 cm RA Width 3.4 cm RA Height 3.3 cm Aorta at Sinotubular Diameter 3.2 cm M-MODE Aortic Annulus Diameter 3.4 cm LA Ao Ratio MM 0.8 MV E Point Septal Separation 0.6 cm DOPPLER AV Peak Velocity 236.0 cm/s LVOT Peak Velocity 121.0 cm/s AV Area Cont Eq vti 2.0 cm squared AV Area Cont Eq pk 1.6 cm squared MV Area PHT 2.4 cm squared Mitral E to A Ratio 0.7 MV E' Velocity 40.0 cm/s Mitral E to MV E' Ratio 11.1 Mitral E to LV E' Lateral Ratio 12.2 Mitral E to LV E' Septal Ratio 10.2 TR Peak Velocity 215.4 cm/s TR Peak Gradient 18.6 mmHg TR Mean Velocity 180.0 cm/s TR Mean Gradient 13.8 mmHg TR Velocity Time Integral 87.5 cm TV Peak E Velocity 48.0 cm/s Right Atrial Pressure 3.0 mmHg Pulmonary Artery Systolic Pressu 21.6 mmHg PV Peak Velocity 66.0 cm/s RV Acceleration Time 0.1 s RV Ejection Time 0.4 s RV AcT/ET 0.3 FINDINGS Left Ventricle Normal left ventricular size, systolic function and mildly increased wall thickness, with no regional wall motion abnormalities. Left ventricular ejection fraction is estimated at 70-75 %. Grade I diastolic dysfunction (abnormal relaxation filling pattern), normal to mildly elevated filling pressures. Abnormal septal motion consistent with pacemaker. Right Ventricle Normal right ventricular size and systolic function. Right ventricular systolic pressure 25 mmHg. Pacemaker wire visualized in the right ventricle. Right Atrium Normal right atrial size. Left Atrium Mildly increased left atrial size. Mitral Valve Mild mitral annular calcification. Mildly thickened mitral valve. No mitral valve stenosis. Trace mitral valve regurgitation. Aortic Valve Moderately thickened and calcified trileaflet aortic valve. Aortic valve sclerosis without stenosis. Moderate aortic valve regurgitation. Tricuspid Valve Structurally normal tricuspid valve. No tricuspid valve stenosis. Trace to mild tricuspid valve regurgitation. Pulmonic Valve Structurally normal pulmonic valve. No pulmonary valve stenosis. Mild pulmonary valve regurgitation. Pericardium No pericardial effusion. Aorta Moderately dilated aortic root and ascending aorta measured anteroposteriorly at 4.7 cm. Effacement of sinotubular junction. Normal-sized inferior vena cava. CONCLUSIONS 1. Normal left ventricular size, systolic function and mildly increased wall thickness, with no regional wall motion abnormalities. Left ventricular ejection fraction is estimated at 70-75 %. Grade I diastolic dysfunction (abnormal relaxation filling pattern), normal to mildly elevated filling pressures. 2. Normal right ventricular size and systolic function. 3. Moderate aortic valve regurgitation. 4. Moderately dilated aortic root measured anteroposteriorly at 4.7 cm. 5. When compared to previous echocardiogram dated 12/05/2019, there is moderately dilated aortic root and ascending aorta measured anteroposteriorly at 4.7 cm. Shira Ryan MD (Electronically Signed) Final Date: 22 January 2022 13:04 S
== END 2022-01-17 13:46 | disposition home or self-care (01) ==
PROVIDERS: PCP Family Medicine; Visit Provider Internal Medicine Cardiovascular Disease
DX: I35.1 Nonrheumatic aortic (valve) insufficiency (principal); I71.2 Thoracic aortic aneurysm, without rupture
CPT/HCPCS: C8929

== ENCOUNTER 2022-03-14 11:44 | Outpatient (CLI) | payer MEDICARE, SELFPAY ==
--- NOTE | 2022-03-14 | XR_ITS ---
WS: [id number] HAND LEFT TECHNIQUE: 3 views of the left hand CLINICAL INFORMATION: HAND PAIN COMPARISON: None. FINDINGS: Osteopenia. Narrowing of the radiocarpal joint. Chondrocalcinosis. Degenerative narrowing with sclero sis at the 1st CMC and STT. Degenerative narrowing of the PIP and DIP joints. Soft tissue edema dorsa l wrist and hand. XR/XR hand LT min 3V* [id number] IMPRESSION: 1. Osteopenia. No visualized acute fractures. 2. Soft tissue edema dorsal hand and wrist. If continued pain, wrist could be further evaluated with CT or MRI. 3. Degenerative narrowing at the 1st CMC and STT with subchondral sclerosis. 4. Degenerative narrowing at the radiocarpal joint.
== END 2022-03-14 11:45 | disposition home or self-care (01) ==
LOC: RADOUTREAD 11:46
PROVIDERS: PCP Family Medicine; Visit Provider Nurse Practitioner Family
DX: M79.642 Pain in left hand (principal); M79.643 Pain in unspecified hand; M85.842 Other specified disorders of bone density and structure, left hand
CPT/HCPCS: 73130

== ENCOUNTER 2022-03-29 16:14 | Emergency (ER) | payer MEDICARE, SELFPAY ==
[2022-03-29 16:24] VITALS: BP 185/112; PULSE 83; RESP 18; TEMP 36.6; O2SAT 97; BMI 23.3
[2022-03-29 16:58] VITALS: BP 182/111; PULSE 69; RESP 16; O2SAT 98
--- NOTE | 2022-03-29 17:03 | XRR_ITS ---
PROCEDURE INFORMATION: Exam: XR Chest Exam date and time: 03/29/2022 5:30 PM Age: 87 years old Clinical indication: Chest wall pain; Prior surgery; Surgery date: 6+ months; Surgery type: Pacemaker; Additional info: Chest pain TECHNIQUE: Imaging protocol: Radiologic exam of the chest. Views: 1 view. COMPARISON: [place] Chest 1 [place] [id number] 01/11/2019 5:19 AM FINDINGS: Tubes, catheters and devices: There is a dual-lead AICD with leads positioned in the right atrium and right ventricle. Lungs: Lungs are clear. Pleural spaces: There is no pleural effusion or pneumothorax. Heart/Mediastinum: Cardiomediastinal contours are unremarkable. Bones/joints: Bones are unremarkable. XR/XR chest 1V portable [id number] IMPRESSION: No acute findings.
--- NOTE | 2022-03-29 17:04 | ECG_ITS ---
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 Measurements Intervals [place] Rate: 63 P: 151 [place]: 179 QRS: -70 QRSD: 189 T: 99 QT: 459 QTc: 471 Interpretive Statements ELECTRONIC ATRIAL PACEMAKER ELECTRONIC VENTRICULAR PACEMAKER ABNORMAL RHYTHM ECG Compared to ECG 02/26/2021 11:44:10 No significant changes Electronically Signed On 03-29-2022 22:29:46 CDT by Minesh Ngo M.D. [email or web address]
[2022-03-29 17:19] VITALS: BP 182/111; PULSE 70; RESP 16; O2SAT 98
[2022-03-29 17:43] LABS: Eosinophils # 0.2 10^3/uL (0.0-0.8); Eosinophils % 5.5 %; Hematocrit 43.5 % (37.0-47.0); Hemoglobin 14.3 g/dL (11.5-15.3); Lymphocytes # 1.2 10^3/uL (0.8-4.8); Lymphocytes % 31.2 %; Mean Corpuscular HGB Conc 32.9 g/dL (30.0-36.0); Mean Corpuscular Hemoglobin 30.3 pg (28.0-34.0); Mean Corpuscular Volume 92.2 fl (81-99); Mean Platelet Volume 12.4 fL (7.4-10.4); Monocytes # 0.4 10^3/uL (0.2-0.9); Monocytes % 9.6 %; Neutrophils # 2.08 10^3/uL (1.8-7.7); Neutrophils % 52.4 %; Nucleated Red Blood Cells % 0 %; Platelet Count 143 10^3/cmm (130-400); Red Blood Count 4.72 10^6/uL (4.1-5.3); Red Cell Distribution Width 13.4 % (12.1-15.1)
--- NOTE | 2022-03-29 17:44 | W.ED.CHESTPA ---
Documented by User: Herman Castillo DO 03/30/22 06:46 HPI - Chest Pain General: Chief Complaint: Chest Pain Stated Complaint: chest pains Time Seen by Provider: 03/29/22 17:02 History of Present Illness: 87-year-old female presents emergency room with complaint of left-sided chest pain no radiation of the pain she has had couple of times in the last week or 2 usually last for no more than 10 minutes. Pain does not radiate she denies any associated shortness of breath or diaphoresis it is reproducible with palpation across her anterior chest wall. 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 MD complaint: chest pain Onset (ago): day(s) (3) Timing of current episode: episodic Onset: during rest Pain location: left chest Pain radiation: none Severity: mild Quality: sharp Relieving factors: nothing Exacerbating factors: palpation Associated symptoms: Reports palpitations; Deny abdominal pain, diaphoresis, dyspnea, fever(s), leg edema, nausea, sense of impending doom, syncope or vomiting Treatment prior to arrival: none Review of Systems Const: Denies: fever(s) or diaphoresis ENMT: Denies: throat pain, ear or mastoid pain, nasal discharge or nasal congestion Card: Reports: palpitations; Denies: syncope Resp: Denies: dyspnea GI: Denies: abdominal pain, nausea or vomiting : Denies: flank pain, difficulty voiding, dysuria, urinary frequency or urinary urgency Skin/Breast: Denies: rash or pruritus PFS ED PFSH: Medical History Aortic insufficiency Aortic valve sclerosis Ascending aortic aneurysm HTN (hypertension) Hyperlipidemia Left bundle branch block Second degree AV block, Mobitz type II Ureteral stent retained Surgical History S/P cholecystectomy S/P hip replacement Status cardiac pacemaker Status post tubal ligation Family History Daughter Cancer BREAST Son Cancer KIDNEY Father , in his 80's No problems noted. Mother , in her 80's No problems noted. Social History (Reviewed 03/30/22 @ 06:44 by ENRIQUETA Smiley Smoking and tobacco status: never smoked Alcohol intake: never Marital status: / Current occupational status: retired History of recent travel: No Physical Exam Const: COMMON NORMALS: no acute distress GENERAL APPEARANCE: cooperative and comfortable ORIENTATION/CONSCIOUSNESS: Yes awake, Yes oriented to person, Yes oriented to place and Yes oriented to time HENMT: COMMON NORMALS: normocephalic, atraumatic and hearing grossly normal bilaterally HEAD & SCALP: normocephalic and atraumatic Eye: COMMON NORMALS: Equal, round and reactive pupils present, EOMs intact bilaterally, conjunctivae normal and no scleral icterus CONJUNCTIVA: Yes conjunctivae normal PUPIL: Yes Equal, round and reactive pupils present Neck/C-Spine: COMMON NORMALS: full ROM, no lymphadenopathy, supple and no JVD Lymph: LYMPHATIC: no lymphadenopathy noted and no lymphedema noted Chest: OTHER: Chest pain reproducible on the left with palpation of the upper lip and upper lateral portion of the left chest. Resp: COMMON NORMALS: normal respiratory effort, No retractions, No use of accessory muscles and clear to auscultation bilaterally AUSCULTATION: clear to auscultation bilaterally Cardio: COMMON NORMALS: no JVD, regular rate and regular rhythm RATE: regular rate RHYTHM: regular rhythm HEART SOUNDS: Murmur heart sound present systolic Location: apex Intensity: II/ Timing: late GI: COMMON NORMALS: Soft to palpation and No hepatosplenomegaly present AUSCULTATION: Yes normoactive bowel sounds PALPATION: Yes Soft to palpation, No Tenderness to palpation present (GI), No Guarding due to palpation present (GI) and Yes No hepatosplenomegaly present Extremity: COMMON NORMALS: normal to inspection, capillary refill normal, no clubbing, cyanosis or edema, no calf tenderness and no pedal edema Neuro: SENSORIUM/ORIENTATION: Yes oriented to person, Yes oriented to place and Yes oriented to time Skin: COMMON NORMALS: no rashes or lesions noted GENERAL SKIN EXAM: no rashes or lesions noted Course Vital Signs: Vital signs: Vital Signs Temperature 97.8 F 03/29/22 16:24 Pulse Rate 78 03/29/22 22:38 Respiratory Rate 16 03/29/22 17:19 Blood Pressure 177/98 03/29/22 22:38 Pulse Oximetry 100 03/29/22 22:38 MDM - Chest Pain Medical Decision Making Care signed out to Dr. Larry at change of shift. See final notes for diagnosis and disposition. Patient presents with chest pain that is atypical in nature likely muscle pain. She is point tender over left chest and had been weed eating as well. Her troponins here are negative she has been pain-free here she is to follow-up with her PCP and 2 to 4 days return if worsening she understands agrees to plan. Medical Records I reviewed the patient's medical records. Lab Data I reviewed the patient's lab results. : 03/29/22 17:22 03/29/22 19:30 Radiology Impressions Chest X-Ray 03/29/22 17:03 IMPRESSION: No acute findings. Laboratory Results WBC 4.0 10^3/uL (4.0-10.0) 03/29/22 17: RBC 4.72 10^6/uL (4.1-5.3) 03/29/22 17: Hgb 14.3 g/dL (11.5-15.3) 03/29/22 17: Hct 43.5 % (37.0-47.0) 03/29/22 17: MCV 92.2 fl (81-99) 03/29/22 17: MCH 30.3 pg (28.0-34.0) 03/29/22 17: MCHC 32.9 g/dL (30.0-36.0) 03/29/22 17: RDW 13.4 % (12.1-15.1) 03/29/22 17: Plt Count 143 10^3/cmm (130-400) 03/29/22 17:22 MPV 12.4 fL (7.4-10.4) H 03/29/22 17: Neut % (Auto) 52.4 % 03/29/22 17: Lymph % (Auto) 31.2 % 03/29/22 17: Ellis % (Auto) 9.6 % 03/29/22 17:22 Eos % (Auto) 5.5 % 03/29/22 17:22 Baso % (Auto) 1.0 % 03/29/22 17: Neut # (Auto) 2.08 10^3/uL (1.8-7.7) 03/29/22 17:22 Lymph # (Auto) 1.2 10^3/uL (0.8-4.8) 03/29/22 17:22 Ellis # (Auto) 0.4 10^3/uL (0.2-0.9) 03/29/22 17:22 Eos # (Auto) 0.2 10^3/uL (0.0-0.8) 03/29/22 17:22 Baso # (Auto) 0.0 10^3/uL (0.0-0.1) 03/29/22 17:22 Nucleated RBC % (auto) 0 % 03/29/22 17: Nucleated RBCs # 0.0 /100WBC 03/29/22 17: Sodium 138 mmol/L (136-145) 03/29/22 19:30 Potassium 4.0 mmol/L (3.5-5.1) 03/29/22 19:30 Chloride 105 mmol/L (98-107) 03/29/22 19:30 Carbon Dioxide 23 mmol/L (22-29) 03/29/22 19:30 Anion Gap 14.0 (5-19) 03/29/22 19:30 BUN 11 mg/dL (8-23) 03/29/22 19:30 Creatinine 0.6 mg/dL (0.5-0.9) 03/29/22 19:30 GFR Calculation Not Reportable 03/29/22 19:30 Glucose 91 mg/dL (65-115) 03/29/22 19:30 Calculated Osmolality 285 mOsm/kg (285-295) 03/29/22 19:30 Calcium 9.3 mg/dL (8.5-10.5) 03/29/22 19:30 Total Bilirubin 0.6 mg/dL (0.15-1.2) 03/29/22 19:30 AST 23 U/L (0-32) 03/29/22 19:30 ALT 13 U/L (0-33) 03/29/22 19:30 Alkaline Phosphatase 63 IU/L (35-105) 03/29/22 19:30 Troponin T Baseline 20 ng/L (0-10) H 03/29/22 19:30 Troponin T 120 Minute 19.36 ng/L (0-10) H 03/29/22 21:39 Delta Troponin T -0.64 ABS# (0-10) L 03/29/22 21:39 Total Protein 6.8 g/dL (6.6-8.7) 03/29/22 19:30 Albumin 3.8 g/dL (3.5-5.2) 03/29/22 19:30 Globulin 3.0 g/dL (1.3-4.6) 03/29/22 19:30 Urine Color Yellow (Yellow) 03/29/22 18:36 Urine Appearance Clear (CLEAR) 03/29/22 18:36 Urine pH 6 (5-7) 03/29/22 18:36 Ur Specific [place] 1.010 (1.005-1.030) 03/29/22 18:36 Urine Protein Neg (Negative) 03/29/22 18:36 Urine Glucose (UA) Norm (Normal) 03/29/22 18:36 Urine Ketones Negative (Negative) 03/29/22 18:36 Urine Blood Neg (Negative) 03/29/22 18:36 Urine Nitrate Negative (Negative) 03/29/22 18:36 Urine Bilirubin Neg (Negative) 03/29/22 18:36 Urine Urobilinogen Norm mg/dL (Negative) 03/29/22 18:36 Ur Leukocyte Esterase Negative (Negative) 03/29/22 18:36 Discharge Plan Discharge Patient Disposition: Home Clinical Impression: Chest pain Condition: Stable Prescriptions: No Action magnesium oxide [MagOx] 400 mg (241.3 mg magnesium) tablet 250 mg PO DAILY 0RF Restasis 0.05 % dropperette 1 drop ophthalmic (eye) Q12H 0RF acetaminophen [Tylenol] 325 mg tablet 325 mg PO QID PRN (Reason: Pain) 0RF carvedilol [Coreg] 6.25 mg Tablet 6.25 mg PO BID 0RF aspirin 81 mg Tablet,Delayed Release (Dr/Ec) 81 mg PO DAILY 0RF atorvastatin 10 mg Tablet 10 mg PO DAILY 0RF cholecalciferol (vitamin D3) 100 mcg (4,000 unit) Tablet 100 mcg PO DAILY 0RF Discharge Orders: Discharge ED (Routine); Ordered 03/29/22 Ordered By: Gerard Larry Referrals: Chavez Garland MD [Primary Care Provider] - 1-3 days Discharge Diet: Advance as tolerated Discharge Activity: Resume usual activity Patient Instructions: Chest Pain (ED) Coding Level of Care Code ED Associate Professor Of Biblical Studies for Chg Fwd Documented by User: Gerard Larry MD 03/29/22 22:07 HPI - Chest Pain General: Chief Complaint: Chest Pain Stated Complaint: chest pains Time Seen by Provider: 03/29/22 17:02 [facility] ED PFSH: Medical History Aortic insufficiency Aortic valve sclerosis Ascending aortic aneurysm HTN (hypertension) Hyperlipidemia Left bundle branch block Second degree AV block, Mobitz type II Ureteral stent retained Surgical History S/P cholecystectomy S/P hip replacement Status cardiac pacemaker Status post tubal ligation Family History Daughter Cancer BREAST Son Cancer KIDNEY Father , in his 80's No problems noted. Mother , in her 80's No problems noted. Social History Smoking and tobacco status: never smoked Alcohol intake: never Marital status: / Current occupational status: retired History of recent travel: No Course Vital Signs: Vital signs: Vital Signs Temperature 97.8 F 03/29/22 16:24 Pulse Rate 78 03/29/22 22:38 Respiratory Rate 16 03/29/22 17:19 Blood Pressure 177/98 03/29/22 22:38 Pulse Oximetry 100 03/29/22 22:38 MDM - Chest Pain Medical Decision Making Patient presents with chest pain that is atypical in nature likely muscle pain. She is point tender over left chest and had been weed eating as well. Her troponins here are negative she has been pain-free here she is to follow-up with her PCP and 2 to 4 days return if worsening she understands agrees to plan. Lab Data : 03/29/22 17:22 06/21/22 19:30 Radiology Impressions Chest X-Ray 03/29/22 17:03 IMPRESSION: No acute findings. Laboratory Results WBC 4.0 10^3/uL (4.0-10.0) 03/29/22 17:22 RBC 4.72 10^6/uL (4.1-5.3) 03/29/22 17:22 Hgb 14.3 g/dL (11.5-15.3) 03/29/22 17:22 Hct 43.5 % (37.0-47.0) 03/29/22 17: MCV 92.2 fl (81-99) 03/29/22 17: MCH 30.3 pg (28.0-34.0) 03/29/22 17: MCHC 32.9 g/dL (30.0-36.0) 03/29/22 17: RDW 13.4 % (12.1-15.1) 03/29/22 17: Plt Count 143 10^3/cmm (130-400) 03/29/22 17:22 MPV 12.4 fL (7.4-10.4) H 03/29/22 17: Neut % (Auto) 52.4 % 03/29/22 17: Lymph % (Auto) 31.2 % 03/29/22 17:22 Ellis % (Auto) 9.6 % 03/29/22 17:22 Eos % (Auto) 5.5 % 03/29/22 17: Baso % (Auto) 1.0 % 03/29/22 17: Neut # (Auto) 2.08 10^3/uL (1.8-7.7) 03/29/22 17:22 Lymph # (Auto) 1.2 10^3/uL (0.8-4.8) 03/29/22 17:22 Ellis # (Auto) 0.4 10^3/uL (0.2-0.9) 03/29/22 17:22 Eos # (Auto) 0.2 10^3/uL (0.0-0.8) 03/29/22 17:22 Baso # (Auto) 0.0 10^3/uL (0.0-0.1) 03/29/22 17:22 Nucleated RBC % (auto) 0 % 03/29/22 17: Nucleated RBCs # 0.0 /100WBC 03/29/22 17:22 Sodium 138 mmol/L (136-145) 03/29/22 19:30 Potassium 4.0 mmol/L (3.5-5.1) 03/29/22 19:30 Chloride 105 mmol/L (98-107) 03/29/22 19:30 Carbon Dioxide 23 mmol/L (22-29) 03/29/22 19:30 Anion Gap 14.0 (5-19) 03/29/22 19:30 BUN 11 mg/dL (8-23) 03/29/22 19:30 Creatinine 0.6 mg/dL (0.5-0.9) 03/29/22 19:30 GFR Calculation Not Reportable 03/29/22 19:30 Glucose 91 mg/dL (65-115) 03/29/22 19:30 Calculated Osmolality 285 mOsm/kg (285-295) 03/29/22 19:30 Calcium 9.3 mg/dL (8.5-10.5) 03/29/22 19:30 Total Bilirubin 0.6 mg/dL (0.15-1.2) 03/29/22 19:30 AST 23 U/L (0-32) 03/29/22 19:30 ALT 13 U/L (0-33) 03/29/22 19:30 Alkaline Phosphatase 63 IU/L (35-105) 03/29/22 19:30 Troponin T Baseline 20 ng/L (0-10) H 03/29/22 19:30 Troponin T 120 Minute 19.36 ng/L (0-10) H 03/29/22 21:39 Delta Troponin T -0.64 ABS# (0-10) L 03/29/22 21:39 Total Protein 6.8 g/dL (6.6-8.7) 03/29/22 19:30 Albumin 3.8 g/dL (3.5-5.2) 03/29/22 19:30 Globulin 3.0 g/dL (1.3-4.6) 03/29/22 19:30 Urine Color Yellow (Yellow) 03/29/22 18:36 Urine Appearance Clear (CLEAR) 03/29/22 18:36 Urine pH 6 (5-7) 03/29/22 18:36 Ur Specific [place] 1.010 (1.005-1.030) 03/29/22 18:36 Urine Protein Neg (Negative) 03/29/22 18:36 Urine Glucose (UA) Norm (Normal) 03/29/22 18:36 Urine Ketones Negative (Negative) 03/29/22 18:36 Urine Blood Neg (Negative) 03/29/22 18:36 Urine Nitrate Negative (Negative) 03/29/22 18:36 Urine Bilirubin Neg (Negative) 03/29/22 18:36 Urine Urobilinogen Norm mg/dL (Negative) 03/29/22 18:36 Ur Leukocyte Esterase Negative (Negative) 03/29/22 18:36 EKG Data EKG 1: I personally reviewed and interpreted this EKG as follows: EKG interpretation date: 03/29/22 EKG interpretation time: 19:52 Interpretation: paced hr [address] or t wave abnormalities qrs 185 qtc 456 Discharge Plan Discharge Patient Disposition: Home Clinical Impression: Chest pain Condition: Stable Prescriptions: No Action magnesium oxide [MagOx] 400 mg (241.3 mg magnesium) tablet 250 mg PO DAILY 0RF Restasis 0.05 % dropperette 1 drop ophthalmic (eye) Q12H 0RF acetaminophen [Tylenol] 325 mg tablet 325 mg PO QID PRN (Reason: Pain) 0RF carvedilol [Coreg] 6.25 mg Tablet 6.25 mg PO BID 0RF aspirin 81 mg Tablet,Delayed Release (Dr/Ec) 81 mg PO DAILY 0RF atorvastatin 10 mg Tablet 10 mg PO DAILY 0RF cholecalciferol (vitamin D3) 100 mcg (4,000 unit) Tablet 100 mcg PO DAILY 0RF Discharge Orders: Discharge ED (Routine); Ordered 03/29/22 Ordered By: Gerard Larry Referrals: Chavez Garland MD [Primary Care Provider] - 1-3 days Discharge Diet: Advance as tolerated Discharge Activity: Resume usual activity Patient Instructions: Chest Pain (ED) Coding Level of Care Code ED Associate Professor Of Biblical Studies for Chg Selina
--- NOTE | 2022-03-29 19:04 | ECG_ITS ---
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 Measurements Intervals [place] Rate: 65 P: 68 [place]: 181 QRS: 256 QRSD: 185 T: 93 QT: 445 QTc: 463 Interpretive Statements ELECTRONIC ATRIAL PACEMAKER ELECTRONIC VENTRICULAR PACEMAKER ABNORMAL RHYTHM ECG Compared to ECG 03/29/2022 17:21:23 No significant changes Electronically Signed On 03-29-2022 22:38:09 CDT by Minesh Ngo M.D. [id number]
[2022-03-29 19:36] LABS: Add Urine Microscopic? NO; Charge for UA Resulting for Rev
[2022-03-29 19:47] LABS: Bilirubin Urine Neg (Negative); Blood Urine Neg (Negative); Glucose Urine UA Norm (Normal); Ketones Urine Negative (Negative); Leukocyte Esterase Urine Negative (Negative); Nitrate Urine Negative (Negative); Protein Urine Neg (Negative); Urine Appearance Clear (CLEAR); Urine Color Yellow (Yellow); Urobilinogen Urine Norm (Negative); pH Urine 6 (5-7)
[2022-03-29 20:08] LABS: Alanine Aminotransferase 13 U/L (0-33); Albumin Level 3.8 g/dL (3.5-5.2); Alkaline Phosphatase 63 IU/L (35-105); Aspartate Amino Transferase 23 U/L (0-32); Blood Urea Nitrogen 11 mg/dL (8-23); Calcium 9.3 mg/dL (8.5-10.5); Carbon Dioxide 23 mmol/L (22-29); Chloride 105 mmol/L (98-107); Glucose 91 mg/dL (65-115); Osmolality Calculated 285 mOsm/kg (285-295); Sodium 138 mmol/L (136-145); Total Bilirubin 0.6 mg/dL (0.15-1.2); Total Protein 6.8 g/dL (6.6-8.7)
[2022-03-29 20:26] LABS: Troponin(5th) Baseline 20 ng/L (0-10)
[2022-03-29 22:00] LABS: Troponin 5 2HR 19.36 ng/L (0-10)
[2022-03-29 22:01] LABS: Troponin 5 2HR Delta -0.64 ABS# (0-10)
[2022-03-29 22:38] VITALS: BP 177/98; PULSE 78; O2SAT 100
== END 2022-03-29 22:40 | disposition home or self-care (01) ==
PROVIDERS: Family Medicine; Emergency Provider Emergency Medicine; PCP Family Medicine
DX: R07.9 Chest pain, unspecified (principal); Z79.82 Long term (current) use of aspirin; I10 Essential (primary) hypertension; E78.5 Hyperlipidemia, unspecified; Z95.0 Presence of cardiac pacemaker
CPT/HCPCS: 71045; 80053; 81003; 84484; 85025; 93005; 99284

== ENCOUNTER → 2022-04-13 14:23 | Outpatient (BNVA) | payer MEDICARE, SELFPAY | PROVIDERS: PCP Family Medicine; Visit Provider Family Medicine | DX: N39.0 Urinary tract infection, site not specified (principal); M25.552 Pain in left hip | CPT/HCPCS: 81000; 87086 ==

== ENCOUNTER → 2022-04-22 10:48 | Outpatient (BNVA) | payer MEDICARE, SELFPAY | PROVIDERS: PCP Family Medicine; Visit Provider Internal Medicine Cardiovascular Disease | DX: Z45.010 Encounter for checking and testing of cardiac pacemaker pulse generator [battery] (principal) | CPT/HCPCS: 93280 ==

== ENCOUNTER → 2022-06-09 12:37 | Outpatient (BNVA) | payer MEDICARE, SELFPAY | PROVIDERS: PCP Family Medicine; Visit Provider Internal Medicine Cardiovascular Disease | DX: R07.9 Chest pain, unspecified (principal); I35.1 Nonrheumatic aortic (valve) insufficiency; I71.2 Thoracic aortic aneurysm, without rupture; I44.7 Left bundle-branch block, unspecified; I44.1 Atrioventricular block, second degree; Z95.0 Presence of cardiac pacemaker; I10 Essential (primary) hypertension | CPT/HCPCS: 99213 ==

== ENCOUNTER 2022-06-19 09:43 | Emergency (ER) | payer MEDICARE, SELFPAY ==
[2022-06-19 09:47] VITALS: PULSE 88; RESP 15; TEMP 35.9; O2SAT 95; BMI 19.4
--- NOTE | 2022-06-19 09:51 | ECG_ITS ---
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 Measurements Intervals [place] Rate: 64 P: 119 [place]: 170 QRS: -73 QRSD: 191 T: 105 QT: 439 QTc: 455 Interpretive Statements ELECTRONIC ATRIAL PACEMAKER ELECTRONIC VENTRICULAR PACEMAKER Compared to ECG 03/29/2022 19:52:38 No significant changes Electronically Signed On 06-19-2022 13:16:56 CDT by Moise Ramos M.D. [id number]
--- NOTE | 2022-06-19 10:37 | ED_ITS ---
HPI - Chest Pain General: Chief Complaint: Chest Pain Stated Complaint: Chest Pain Time Seen by Provider: 06/19/22 09:51 History of Present Illness: 87-year-old female presents with chest pain. She reports she can had a constant chest pain/pressure that started a couple hours prior to arrival. Nothing seemed to make it worse or better. It seems like it started after she ate. She took some Rolaids in route and the pain seems be almost gone at this time. Patient recently saw her capital project engineer with a negative evaluation. Patient had a similar episode couple months ago and following that work-up they found no acute cardiac events. Patient denies any shortness of breath, fevers chills diaphoresis or any other associated symptoms. Associated symptoms: Deny abdominal pain, dyspnea, fever(s), nausea, palpitations or vomiting Review of Systems Const: Denies: fever(s) or chills Card: Reports: chest pain; Denies: palpitations, irregular heart rhythm, lightheadedness or dyspnea on exertion Resp: Denies: dyspnea, productive cough or non-productive cough GI: Denies: abdominal pain, nausea or vomiting : Denies: flank pain or difficulty voiding Musc: Denies: neck pain, back pain or extremity pain Skin/Breast: Denies: rash Neuro: Denies: headache(s) or dizziness Psych: Denies: anxiety or depression PFS ED PFSH: Medical History (Updated 06/19/22 @ 12:26 by Chandan Reid DO) Aortic insufficiency Aortic valve sclerosis Ascending aortic aneurysm HTN (hypertension) Hyperlipidemia Left bundle branch block Second degree AV block, Mobitz type II Ureteral stent retained Surgical History S/P cholecystectomy S/P hip replacement Status cardiac pacemaker Status post tubal ligation Family History Daughter Cancer BREAST Son Cancer KIDNEY Father , in his 80's No problems noted. Mother , in her 80's No problems noted. Social History Smoking and tobacco status: never smoked Alcohol intake: never Marital status: / Current occupational status: retired History of recent travel: No Physical Exam Const: COMMON NORMALS: patient oriented x3 GENERAL APPEARANCE: cooperative, comfortable and well developed; not in distress HENMT: COMMON NORMALS: normocephalic, hearing grossly normal bilaterally and moist oral mucous membranes HEAD & SCALP: normocephalic Neck/C-Spine: COMMON NORMALS: full ROM and supple Resp: COMMON NORMALS: normal respiratory effort, No use of accessory muscles and clear to auscultation bilaterally AUSCULTATION: clear to auscultation bilaterally Cardio: COMMON NORMALS: regular rate and regular rhythm RATE: regular rate RHYTHM: regular rhythm GI: COMMON NORMALS: Normal to inspection, nondistended, normoactive bowel sounds present, Soft to palpation and non-tender PALPATION: Yes Soft to palpation Extremity: COMMON NORMALS: normal to inspection, full ROM and capillary refill normal Neuro: COMMON NORMALS: patient oriented x3, moves all extremities and no focal motor deficits Psych: COMMON NORMALS: mental status grossly normal, cooperative, normal affect and speech normal SPEECH: Yes normal speech Skin: COMMON NORMALS: no rashes or lesions noted GENERAL SKIN EXAM: no rashes or lesions noted Course Vital Signs: Vital signs: Vital Signs Temperature 96.6 F L 06/19/22 09:47 Pulse Rate 62 06/19/22 11:00 Respiratory Rate 17 06/19/22 11:00 Blood Pressure 176/130 06/19/22 11:00 Pulse Oximetry 97 06/19/22 11:00 Oxygen Delivery Me thod 06/19/22 11:00 MDM - Chest Pain Medical Decision Making Patient with 2 EKGs that were unchanged that showed electronically paced. Patient troponin of 17 which is down from her previous visit and likely her baseline based on her age and previous medical history. Patient's blood pressure was a little elevated however she had not taken her Coreg this morning. Did provide her a Coreg here in the ER. Recommend she call her capital project engineer to make them aware of her visit. Patient is otherwise stable and discharged home Lab Data : 06/19/22 11:36 06/19/22 11:36 Laboratory Results WBC 4.4 10^3/uL (4.0-10.0) 06/19/22 11:36 RBC 4.89 10^6/uL (4.1-5.3) 06/19/22 11:36 Hgb 15.0 g/dL (11.5-15.3) 06/19/22 11:36 Hct 47.0 % (37.0-47.0) 06/19/22 11:36 MCV 96.1 fl (81-99) 06/19/22 11:36 MCH 30.7 pg (28.0-34.0) 06/19/22 11:36 MCHC 31.9 g/dL (30.0-36.0) 06/19/22 11:36 RDW 14.5 % (12.1-15.1) 06/19/22 11:36 Plt Count 140 10^3/cmm (130-400) 06/19/22 11:36 MPV 11.2 fL (7.4-10.4) H 06/19/22 11:36 Neut % (Auto) 57.3 % 06/19/22 11:36 Lymph % (Auto) 28.0 % 06/19/22 11:36 [place] % (Auto) 10.1 % 06/19/22 11:36 Eos % (Auto) 3.7 % 06/19/22 11:36 Baso % (Auto) 0.7 % 06/19/22 11:36 Neut # (Auto) 2.50 10^3/uL (1.8-7.7) 06/19/22 11:36 Lymph # (Auto) 1.2 10^3/uL (0.8-4.8) 06/19/22 11:36 [place] # (Auto) 0.4 10^3/uL (0.2-0.9) 06/19/22 11:36 Eos # (Auto) 0.2 10^3/uL (0.0-0.8) 06/19/22 11:36 Baso # (Auto) 0.0 10^3/uL (0.0-0.1) 06/19/22 11:36 Nucleated RBC % (auto) 0 % 06/19/22 11:36 Nucleated RBCs # 0.0 /100WBC 06/19/22 11:36 Sodium 141 mmol/L (136-145) 06/19/22 11:36 Potassium 4.0 mmol/L (3.5-5.1) 06/19/22 11:36 Chloride 106 mmol/L (98-107) 06/19/22 11:36 Carbon Dioxide 23 mmol/L (22-29) 06/19/22 11:36 Anion Gap 16.0 (5-19) 06/19/22 11:36 BUN 10 mg/dL (8-23) 06/19/22 11:36 Creatinine 0.7 mg/dL (0.5-0.9) 06/19/22 11:36 GFR Calculation Not Reportable 06/19/22 11:36 Glucose 88 mg/dL (65-115) 06/19/22 11:36 Calculated Osmolality 290 mOsm/kg (285-295) 06/19/22 11:36 Calcium 10.0 mg/dL (8.5-10.5) 06/19/22 11:36 Total Bilirubin 0.7 mg/dL (0.15-1.2) 06/19/22 11:36 AST 24 U/L (0-32) 06/19/22 11:36 ALT 15 U/L (0-33) 06/19/22 11:36 Alkaline Phosphatase 83 U/L (35-105) 06/19/22 11:36 Troponin T Baseline 17 ng/L (0-10) H 06/19/22 11:36 Total Protein 7.2 g/dL (6.6-8.7) 06/19/22 11:36 Albumin 4.0 g/dL (3.5-5.2) 06/19/22 11:36 Globulin 3.2 g/dL (1.3-4.6) 06/19/22 11:36 EKG Data EKG 1: I personally reviewed and interpreted this EKG as follows: EKG interpretation date: 06/19/22 EKG interpretation time: 09:55 Interpretation: pacemaker, unchanged from previous, hr 64 qrs 191 EKG 2: I personally reviewed and interpreted this EKG as follows: EKG interpretation date: 06/19/22 EKG interpretation time: 11:45 Interpretation: hr 65, paced, pr 175, unchanged from previous Discharge Plan Discharge Patient Disposition: Home Clinical Impression: Acute nonspecific chest pain with low risk of coronary artery disease Condition: Stable Prescriptions: No Action magnesium oxide [MagOx] 400 mg (241.3 mg magnesium) tablet 250 mg PO DAILY Restasis 0.05 % dropperette 1 drop ophthalmic (eye) Q12H acetaminophen [Tylenol] 325 mg tablet 325 mg PO QID PRN (Reason: Pain) carvedilol [Coreg] 6.25 mg Tablet 6.25 mg PO BID aspirin 81 mg Tablet,Delayed Release (Dr/Ec) 81 mg PO DAILY atorvastatin 10 mg Tablet 10 mg PO DAILY cholecalciferol (vitamin D3) 100 mcg (4,000 unit) Tablet 100 mcg PO DAILY Discharge Orders: Discharge ED (Routine); Ordered 06/19/22 Ordered By: Chandan Reid Referrals: Chavez Garland MD [Primary Care Provider] - Discharge Diet: Usual diet Discharge Activity: Resume usual activity Patient Instructions: Opioid Safety Activity Restrictions/Additional Instructions: Please call your capital project engineer and make him aware of your visit to ensure that they do not want to do any further outpatient testing Return to the ER as needed Coding Level of Care Code ED Bearing Ring Assembler for Tami Fwd Exam Comprehensive
[2022-06-19 10:38] VITALS: BP 165/100; PULSE 88; RESP 17; O2SAT 97
[2022-06-19 11:00] VITALS: BP 176/130; PULSE 62; RESP 17; O2SAT 97
[2022-06-19] MEDS: carvedilol 6.25 mg Tablet PO (11:39)
[2022-06-19 11:44] LABS: Basophils % 0.7 %; Eosinophils # 0.2 10^3/uL (0.0-0.8); Eosinophils % 3.7 %; Lymphocytes # 1.2 10^3/uL (0.8-4.8); Mean Corpuscular HGB Conc 31.9 g/dL (30.0-36.0); Mean Corpuscular Hemoglobin 30.7 pg (28.0-34.0); Mean Corpuscular Volume 96.1 fl (81-99); Mean Platelet Volume 11.2 fL (7.4-10.4); Monocytes # 0.4 10^3/uL (0.2-0.9); Monocytes % 10.1 %; Neutrophils % 57.3 %; Nucleated Red Blood Cells % 0 %; Platelet Count 140 10^3/cmm (130-400); Red Blood Count 4.89 10^6/uL (4.1-5.3); Red Cell Distribution Width 14.5 % (12.1-15.1); White Blood Count 4.4 10^3/uL (4.0-10.0)
--- NOTE | 2022-06-19 11:51 | ECG_ITS ---
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 Measurements Intervals [place] Rate: 65 P: 24 [place]: 175 QRS: -74 QRSD: 190 T: 98 QT: 445 QTc: 465 Interpretive Statements ELECTRONIC ATRIAL PACEMAKER ELECTRONIC VENTRICULAR PACEMAKER Compared to ECG 06/19/2022 09:55:56 No significant changes Electronically Signed On 06-19-2022 13:25:12 CDT by Moise Ramos M.D. [id number]
[2022-06-19 11:58] LABS: Troponin(5th) Baseline 17 ng/L (0-10)
[2022-06-19 12:07] LABS: Alanine Aminotransferase 15 U/L (0-33); Alkaline Phosphatase 83 U/L (35-105); Aspartate Amino Transferase 24 U/L (0-32); Blood Urea Nitrogen 10 mg/dL (8-23); Carbon Dioxide 23 mmol/L (22-29); Chloride 106 mmol/L (98-107); Globulin 3.2 g/dL (1.3-4.6); Glucose 88 mg/dL (65-115); Osmolality Calculated 290 mOsm/kg (285-295); Sodium 141 mmol/L (136-145); Total Bilirubin 0.7 mg/dL (0.15-1.2); Total Protein 7.2 g/dL (6.6-8.7)
[2022-06-19 12:21] VITALS: BP 180/90; PULSE 65; RESP 17; O2SAT 97
== END 2022-06-19 12:32 | disposition home or self-care (01) ==
PROVIDERS: Emergency Provider Student in an Organized Health Care Education/Training Program; PCP Family Medicine
DX: R07.89 Other chest pain (principal); Z79.82 Long term (current) use of aspirin; I10 Essential (primary) hypertension; E78.5 Hyperlipidemia, unspecified; Z95.0 Presence of cardiac pacemaker
CPT/HCPCS: 36415; 80053; 84484; 85025; 93005; 99285

== ENCOUNTER → 2022-08-12 10:18 | Outpatient (BNVA) | payer MEDICARE, SELFPAY | PROVIDERS: PCP Family Medicine; Visit Provider Internal Medicine Cardiovascular Disease | DX: Z45.010 Encounter for checking and testing of cardiac pacemaker pulse generator [battery] (principal) | CPT/HCPCS: 93280 ==

== ENCOUNTER → 2022-09-14 12:42 | Outpatient (BNVA) | payer MEDICARE, SELFPAY | PROVIDERS: PCP Family Medicine; Visit Provider Clinical Nurse Specialist Adult Health | DX: M54.9 Dorsalgia, unspecified (principal); N39.0 Urinary tract infection, site not specified; M25.552 Pain in left hip | CPT/HCPCS: 81000; 87086 ==

== ENCOUNTER → 2022-12-15 12:30 | Outpatient (BNVA) | payer MEDICARE, SELFPAY | PROVIDERS: PCP Family Medicine; Visit Provider Internal Medicine Cardiovascular Disease | DX: I35.1 Nonrheumatic aortic (valve) insufficiency (principal); I44.7 Left bundle-branch block, unspecified; I44.1 Atrioventricular block, second degree; Z95.0 Presence of cardiac pacemaker; E78.5 Hyperlipidemia, unspecified; I10 Essential (primary) hypertension; Z79.82 Long term (current) use of aspirin | CPT/HCPCS: 99214 ==

== ENCOUNTER → 2023-01-17 14:15 | Outpatient (BNVA) | payer MEDICARE, SELFPAY | PROVIDERS: PCP Family Medicine; Visit Provider Nurse Practitioner Family | DX: N23 Unspecified renal colic (principal) | CPT/HCPCS: 81003 ==

== ENCOUNTER → 2023-05-11 14:57 | Outpatient (BNVA) | payer MEDICARE, SELFPAY | PROVIDERS: PCP Family Medicine; Visit Provider Family Medicine | DX: N39.0 Urinary tract infection, site not specified (principal); R31.9 Hematuria, unspecified; E78.5 Hyperlipidemia, unspecified; I10 Essential (primary) hypertension | CPT/HCPCS: 80053; 81003; 84443; 85025; 86140; 87086 ==

== ENCOUNTER 2023-06-01 11:01 | Emergency (ER) | payer MEDICARE, SELFPAY ==
[2023-06-01] VITALS (35 sets, daily range): BP systolic 142–167; BP diastolic 85–103; PULSE 60–97; RESP 13–28; O2SAT 84–98
--- NOTE | 2023-06-01 11:14 | CT_ITS ---
WS: [id number] CT HEAD TECHNIQUE: Noncontrast CT of the head obtained from the skullbase to the vertex. CLINICAL INFORMATION: SYMPTOMS OF ACUTE STROKE COMPARISON: None. DLP: [id number] scans at [facility] use at least one of these dose optimization techniques: automated e xposure control; mA and/or kV adjustment per patient size (includes targeted exams where dose is matc hed to clinical indication); or iterative reconstruction. FINDINGS: No evidence of intracranial hemorrhage or mass effect. Ventricular system and basal cisterns are kitchen nt. Moderate small vessel changes with moderate parenchymal volume loss. Tiny chronic lacunar infarct s adjacent to the RIGHT caudate. Mild intracranial vascular calcification. Normal jeanine. No extra-axia l fluid collections. No evidence of mass or mass effect. Mild mucosal thickening in the ethmoid air cells. Mastoid air cells are well aerated. Normal posterio r nasopharynx. IMPRESSION: 1. No evidence of intracranial hemorrhage or mass effect. 2. No acute intracranial findings. Notified Herman Castillo DO at 06/01/2023 11:27 AM.
--- NOTE | 2023-06-01 11:37 | ECG_ITS ---
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 Measurements Intervals [place] Rate: 68 P: 73 LA: 204 QRS: -82 QRSD: 183 T: 92 QT: 453 QTc: 484 Interpretive Statements ELECTRONIC VENTRICULAR PACEMAKER Compared to ECG 06/19/2022 11:43:29 Atrial-paced complex(es) or rhythm no longer present Electronically Signed On 06-01-2023 15:15:42 CDT by Moise Ramos M.D. [email or web address]/[id number] f
--- NOTE | 2023-06-01 11:37 | W.ED.NEUROSD ---
HPI - Neuro Symptoms/Deficit General: Chief Complaint: Neuro Symptoms/Deficit Stated Complaint: stroke symptoms Time Seen by Provider: 06/01/23 11:25 Source: patient Mode of arrival: ambulatory History of Present Illness: 88-year-old female who presents to the emergency room from home with right-sided facial drooping. She went to bed in her normal state of good health she does not member exactly what time she went to bed and when she got up this morning when family came around and noticed severe right-sided facial droop and some mild redness of her right eye as well. She cannot close her eyelid all the way. She is unable to drink fluids leak out of the right corner of her mouth. She has no other symptoms. She is awake and alert answers questions appropriately according to family she is otherwise at her baseline beyond the facial drooping. She has no difficulty with gait no nausea vomiting diarrhea no dizziness lightheadedness or vertigo. She denies chest or abdominal pain. No visual difficulties. Onset (ago): unknown Time: 11:01 Timing confirmed by: family member Location: right face Severity: moderate Relieving factors: none Exacerbating factors: none Context: sudden onset On Anticoagulants: No Associated symptoms: Deny chest pain, cough, diaphoresis, fevers/chills, headache(s), anorexia, malaise, nausea, seizures, short of breath, syncope, tingling, vertigo, vomiting or weakness Treatments Prior to Arrival: none Review of Systems Const: Denies: fever(s), chills, fatigue, malaise or diaphoresis Eyes: Denies: change in vision or blurry vision Card: Denies: chest pain, palpitations, irregular heart rhythm or syncope Resp: Denies: dyspnea, productive cough or non-productive cough GI: Denies: abdominal pain, nausea or vomiting : Denies: flank pain, difficulty voiding, dysuria, urinary frequency or urinary urgency Skin/Breast: Denies: rash or pruritus Neuro: Denies: headache(s) or vertigo PFS ED PFSH: Medical History Aortic insufficiency Aortic valve sclerosis Ascending aortic aneurysm HTN (hypertension) Hyperlipidemia Left bundle branch block Second degree AV block, Mobitz type II Ureteral stent retained Surgical History S/P cholecystectomy S/P hip replacement Status cardiac pacemaker Status post tubal ligation Family History Daughter Cancer BREAST Son Cancer KIDNEY Father , in his 80's No problems noted. Mother , in her 80's No problems noted. Social History Smoking and tobacco status: never smoked Alcohol intake: never Substance/Drug Use: never Marital status: / Current occupational status: retired NIH stroke score NIHSS: Level Of Consciousness - 1a: 0 Level Of Consciousness Questions - 1b: Both Correct Level Of Consciousness Commands - 1c: Both Correct Best Gaze - 2: Normal Visual Davis - 3: No Visual Loss Facial Palsy - 4: Partial Paralysis (Partial paralysis of the forehead muscles some slight movement noted) Motor Arm Right - 5: No Drift Motor Arm Left - 5: No Drift Motor Leg Right - 6: No Drift Motor Leg Left - 6: No Drift Limb Ataxia - 7: Absent Sensory - 8: Mild To Moderate Loss (Right side of the face only) Best Language - 9: No Aphasia Dysarthia - 10: Mild/Moderate Dysarthia Extinction And Inattention - 11: 0 Score: Total Score: 4 Physical Exam Const: GENERAL APPEARANCE: cooperative and comfortable ORIENTATION/CONSCIOUSNESS: Yes awake, Yes oriented to person, Yes oriented to place and Yes oriented to time HENMT: COMMON NORMALS: normocephalic, atraumatic and hearing grossly normal bilaterally HEAD & SCALP: normocephalic and atraumatic Resp: COMMON NORMALS: normal respiratory effort, No retractions, No use of accessory muscles and clear to auscultation bilaterally AUSCULTATION: clear to auscultation bilaterally Cardio: COMMON NORMALS: regular rate, regular rhythm and No murmurs present (Cardio) RATE: regular rate RHYTHM: regular rhythm GI: COMMON NORMALS: Soft to palpation and No hepatosplenomegaly present AUSCULTATION: Yes normoactive bowel sounds PALPATION: Yes Soft to palpation, No Tenderness to palpation present (GI), No Guarding due to palpation present (GI) and Yes No hepatosplenomegaly present Extremity: COMMON NORMALS: normal to inspection, capillary refill normal, no clubbing, cyanosis or edema, no calf tenderness and no pedal edema Neuro: SENSORIUM/ORIENTATION: Yes oriented to person, Yes oriented to place and Yes oriented to time Skin: COMMON NORMALS: no rashes or lesions noted GENERAL SKIN EXAM: no rashes or lesions noted Course Vital Signs: Vital signs: Vital Signs Pulse Rate 69 06/01/23 14:15 Respiratory Rate 22 H 06/01/23 14:15 Blood Pressure 142/103 06/01/23 14:15 Pulse Oximetry 97 06/01/23 14:15 Oxygen Delivery Me thod Room Air 06/01/23 13:35 MDM - Neuro Symptoms/Deficit Medical Decision Making 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 It is relatively mild she does have some irritation to the eye from inability to close the eye. We will discharge home prednisone for 1 week. We will also have her use refresh gel drops. Follow-up with primary care. Medical Records I reviewed the patient's medical records. Lab Data I reviewed the patient's lab results. 06/01/23 11:38 06/01/23 12:53 Laboratory Results WBC 5.46 10^3/uL (3.29-11.43) 06/01/23 11:38 RBC 4.83 10^6/uL (3.85-5.65) 06/01/23 11:38 Hgb 15.00 g/dL (11.27-16.99) 06/01/23 11:38 Hct 46.5 % (36-47) 06/01/23 11:38 MCV 96.3 fl (85-98) 06/01/23 11:38 MCH 31.1 pg (27-33) 06/01/23 11:38 MCHC 32.3 g/dL (30-55) 06/01/23 11:38 RDW 13.2 % (12.1-15.1) 06/01/23 11:38 Plt Count 150 10^3/cmm (157-399) L 06/01/23 11:38 MPV 11.8 fL (7.4-10.4) H 06/01/23 11:38 Neut % (Auto) 64.1 % 06/01/23 11:38 Lymph % (Auto) 21.4 % 06/01/23 11:38 Hanson % (Auto) 11.4 % 06/01/23 11:38 Eos % (Auto) 2.0 % 06/01/23 11:38 Baso % (Auto) 0.9 % 06/01/23 11:38 Neut # (Auto) 3.50 10^3/uL (1.8-7.7) 06/01/23 11:38 Lymph # (Auto) 1.2 10^3/uL (0.8-4.8) 06/01/23 11:38 Hanson # (Auto) 0.6 10^3/uL (0.2-0.9) 06/01/23 11:38 Eos # (Auto) 0.1 10^3/uL (0.0-0.8) 06/01/23 11:38 Baso # (Auto) 0.1 10^3/uL (0.0-0.1) 06/01/23 11:38 Nucleated RBC % (auto) 0 % 06/01/23 11:38 Nucleated RBCs # 0.0 /100WBC 06/01/23 11:38 PT 13.80 SECONDS (12.1-14.9) 06/01/23 12:53 INR 1.03 (0.8-1.2) 06/01/23 12:53 APTT 30.6 SECONDS (23.9-36.7) 06/01/23 12:53 Sodium 140 mmol/L (136-145) 06/01/23 12:53 Potassium 4.6 mmol/L (3.5-5.1) 06/01/23 12:53 Chloride 105 mmol/L (98-107) 06/01/23 12:53 Carbon Dioxide 28 mmol/L (22-29) 06/01/23 12:53 Anion Gap 11.6 (5-19) 06/01/23 12:53 BUN 19 mg/dL (8-23) 06/01/23 12:53 Creatinine 0.8 mg/dL (0.5-0.9) 06/01/23 12:53 GFR Calculation Not Reportable 06/01/23 12:53 Glucose 99 mg/dL (65-115) 06/01/23 12:53 POC Glucose 103 mg/dL (70-110) 08/24/23 11:25 Calculated Osmolality 292 mOsm/kg (285-295) 06/01/23 12:53 Calcium 9.7 mg/dL (8.5-10.5) 06/01/23 12:53 Total Bilirubin 0.7 mg/dL (0.15-1.2) 06/01/23 12:53 AST 29 U/L (0-32) 06/01/23 12:53 ALT 19 U/L (0-33) 06/01/23 12:53 Alkaline Phosphatase 60 U/L (35-105) 06/01/23 12:53 Total Protein 7.2 g/dL (6.6-8.7) 06/01/23 12:53 Albumin 4.2 g/dL (3.5-5.2) 06/01/23 12:53 Globulin 3.0 g/dL (1.3-4.6) 06/01/23 12:53 Discharge Plan Discharge Patient Disposition: Home Clinical Impression: Casillas's palsy Condition: Stable Prescriptions: New prednisone 20 mg tablet 20 mg PO TID 7 Days Qty: 21 0RF Refresh Liquigel 1 % drops, liquid gel 1 drp ophthalmic (eye) Q1H PRN (Reason: dry eye(s)) Qty: 15 0RF Rx Instructions: while awake; not to exceed 16 doses per 24 hour period No Action magnesium oxide [MagOx] 400 mg (241.3 mg magnesium) tablet 250 mg PO DAILY Restasis 0.05 % dropperette 1 drop ophthalmic (eye) Q12H acetaminophen [Tylenol] 325 mg tablet 325 mg PO QID PRN (Reason: Pain) aspirin 81 mg Tablet,Delayed Release (Dr/Ec) 81 mg PO DAILY cholecalciferol (vitamin D3) 100 mcg (4,000 unit) Tablet 100 mcg PO DAILY carvedilol 6.25 mg tablet 6.25 mg PO DAILY atorvastatin 10 mg tablet 10 mg PO DAILY Discharge Orders: Discharge ED (Routine); Ordered 06/01/23 Ordered By: Herman Castillo Referrals: Chavez Garland MD [Primary Care Provider] - Discharge Diet: Usual diet Discharge Activity: Increase activity as tolerated Patient Instructions: Opioid Safety, Pain Management Activity Restrictions/Additional Instructions: Follow-up with your primary care doctor within the week. Return if you have any changes symptoms. Coding Level of Care Code ED Business Services Analyst for Karlyg Selina
--- NOTE | 2023-06-01 11:46 | PC.PHAR ---
DAUGHTER STATES ATORVASTATIN 10 MG IS TWICE DAILY. VERIFIED WITH WILL AT PHARMACY ATORVASTATIN 10 MG IS ONCE DAILY.
[2023-06-01 11:48] LABS: Basophils # 0.1 10^3/uL (0.0-0.1); Basophils % 0.9 %; Eosinophils # 0.1 10^3/uL (0.0-0.8); Hematocrit 46.5 % (36-47); Lymphocytes # 1.2 10^3/uL (0.8-4.8); Lymphocytes % 21.4 %; Mean Corpuscular HGB Conc 32.3 g/dL (30-55); Mean Corpuscular Hemoglobin 31.1 pg (27-33); Mean Corpuscular Volume 96.3 fl (85-98); Mean Platelet Volume 11.8 fL (7.4-10.4); Monocytes # 0.6 10^3/uL (0.2-0.9); Monocytes % 11.4 %; Neutrophils % 64.1 %; Nucleated Red Blood Cells % 0 %; Platelet Count 150 10^3/cmm (157-399); Red Blood Count 4.83 10^6/uL (3.85-5.65); Red Cell Distribution Width 13.2 % (12.1-15.1); White Blood Count 5.46 10^3/uL (3.29-11.43)
[2023-06-01 11:48] LABS: Glucose Point of Care 103 mg/dL (70-110)
[2023-06-01 13:17] LABS: INR 1.03 (0.8-1.2)
[2023-06-01 13:18] LABS: Partial Thromboplastin Time 30.6 SECONDS (23.9-36.7)
[2023-06-01 13:21] LABS: Alanine Aminotransferase 19 U/L (0-33); Albumin Level 4.2 g/dL (3.5-5.2); Alkaline Phosphatase 60 U/L (35-105); Anion Gap 11.6 (5-19); Aspartate Amino Transferase 29 U/L (0-32); Blood Urea Nitrogen 19 mg/dL (8-23); Calcium 9.7 mg/dL (8.5-10.5); Carbon Dioxide 28 mmol/L (22-29); Chloride 105 mmol/L (98-107); Glucose 99 mg/dL (65-115); Osmolality Calculated 292 mOsm/kg (285-295); Potassium 4.6 mmol/L (3.5-5.1); Sodium 140 mmol/L (136-145); Total Bilirubin 0.7 mg/dL (0.15-1.2); Total Protein 7.2 g/dL (6.6-8.7)
== END 2023-06-01 14:24 | disposition home or self-care (01) ==
PROVIDERS: Emergency Provider Family Medicine; PCP Family Medicine
DX: G51.0 Bell's palsy (principal); Z79.82 Long term (current) use of aspirin; I10 Essential (primary) hypertension; E78.5 Hyperlipidemia, unspecified; Z95.0 Presence of cardiac pacemaker
CPT/HCPCS: 36415; 36416; 70450; 80053; 82962; 85025; 85610; 85730; 93005; 99285

== ENCOUNTER → 2023-06-08 13:42 | Outpatient (BNVA) | payer MEDICARE, SELFPAY | PROVIDERS: PCP Family Medicine; Visit Provider Family Medicine | DX: N39.0 Urinary tract infection, site not specified (principal); R31.9 Hematuria, unspecified | CPT/HCPCS: 81000 ==

== ENCOUNTER → 2023-06-21 11:25 | Outpatient (BNVA) | payer MEDICARE, SELFPAY | PROVIDERS: PCP Family Medicine; Visit Provider Internal Medicine Cardiovascular Disease | DX: I35.1 Nonrheumatic aortic (valve) insufficiency (principal); I44.7 Left bundle-branch block, unspecified; I44.1 Atrioventricular block, second degree; Z95.0 Presence of cardiac pacemaker; E78.5 Hyperlipidemia, unspecified; I10 Essential (primary) hypertension | CPT/HCPCS: 99214 ==

== ENCOUNTER → 2023-10-18 09:44 | Outpatient (BNVA) | payer MEDICARE, SELFPAY | PROVIDERS: PCP Family Medicine; Visit Provider Family Medicine | DX: N39.0 Urinary tract infection, site not specified (principal); R31.9 Hematuria, unspecified | CPT/HCPCS: 81000; 87086 ==

== ENCOUNTER → 2023-11-02 15:02 | Outpatient (BNVA) | payer MEDICARE, SELFPAY | PROVIDERS: PCP Family Medicine; Visit Provider Family Medicine | DX: F03.90 Unspecified dementia, unspecified severity, without behavioral disturbance, psychotic disturbance, mood disturbance, and anxiety (principal) | CPT/HCPCS: 82306; 82607 ==

== ENCOUNTER → 2023-12-20 11:45 | Outpatient (BNVA) | payer MEDICARE, SELFPAY | PROVIDERS: PCP Family Medicine; Visit Provider Internal Medicine Cardiovascular Disease | DX: I10 Essential (primary) hypertension (principal); E78.5 Hyperlipidemia, unspecified; Z95.0 Presence of cardiac pacemaker; I44.7 Left bundle-branch block, unspecified; I35.1 Nonrheumatic aortic (valve) insufficiency | CPT/HCPCS: 99213 ==

== ENCOUNTER → 2024-06-19 09:27 | Outpatient (BNVA) | payer MEDICARE, SELFPAY | PROVIDERS: PCP Family Medicine; Visit Provider Nurse Practitioner Family | DX: I10 Essential (primary) hypertension (principal); Z95.0 Presence of cardiac pacemaker | CPT/HCPCS: 80053; 84134; 84443; 85025; 86140; 99214 ==

== ENCOUNTER → 2024-07-10 14:19 | Outpatient (BNVA) | payer MEDICARE, SELFPAY | PROVIDERS: PCP Family Medicine; Visit Provider Family Medicine | DX: N30.00 Acute cystitis without hematuria (principal) | CPT/HCPCS: 81000 ==

== ENCOUNTER → 2024-07-11 08:04 | Outpatient (BNVA) | payer MEDICARE, SELFPAY | PROVIDERS: PCP Family Medicine; Visit Provider Family Medicine | DX: N39.0 Urinary tract infection, site not specified (principal); R31.9 Hematuria, unspecified | CPT/HCPCS: 87086 ==

== ENCOUNTER → 2024-10-11 11:45 | Outpatient (BNVA) | payer MEDICARE, SELFPAY | PROVIDERS: PCP Family Medicine; Visit Provider Internal Medicine Cardiovascular Disease | DX: Z45.018 Encounter for adjustment and management of other part of cardiac pacemaker (principal) | CPT/HCPCS: 93280 ==

== ENCOUNTER → 2024-11-25 16:20 | Outpatient (BNVA) | payer MEDICARE, SELFPAY | PROVIDERS: PCP Family Medicine; Visit Provider Family Medicine | DX: R60.9 Edema, unspecified (principal); I10 Essential (primary) hypertension; I35.1 Nonrheumatic aortic (valve) insufficiency; R63.4 Abnormal weight loss; F03.90 Unspecified dementia, unspecified severity, without behavioral disturbance, psychotic disturbance, mood disturbance, and anxiety | CPT/HCPCS: 80053; 83880; 84443; 86140 ==

== ENCOUNTER → 2025-01-22 11:47 | Outpatient (BNVA) | payer MEDICARE, SELFPAY | PROVIDERS: PCP Family Medicine; Visit Provider Family Medicine | DX: N30.00 Acute cystitis without hematuria (principal) | CPT/HCPCS: 81000; 87086 ==

== ENCOUNTER → 2025-01-28 14:45 | Outpatient (BNVA) | payer MEDICARE, SELFPAY | PROVIDERS: PCP Family Medicine; Visit Provider Internal Medicine Cardiovascular Disease | DX: I10 Essential (primary) hypertension (principal); E78.5 Hyperlipidemia, unspecified; Z95.0 Presence of cardiac pacemaker; I83.90 Asymptomatic varicose veins of unspecified lower extremity | CPT/HCPCS: 99214 ==